=== PATIENT | female | born 1935 | race Hispanic/Latino ===

== ENCOUNTER 2020-10-09 09:33 | Inpatient (IN) | payer MEDICARE ==
[2020-10-09 11:58] LABS: Absolute Lymphocytes (CBC) 0.7 K/uL (0.7-4.9); Basophils % 0.3 % (0-1.3); Hematocrit 28.9 % (36.0-45.0); Lymphocytes % 12.5 % (15.3-44.8); MPV 8.1 fL (7.6-11.3); RBC Red Blood Cell Count 2.93 M/uL (3.86-4.86)
[2020-10-09 12:05] LABS: Protime INR 0.97
[2020-10-09 12:18] LABS: ALT/SGPT 106 U/L (12-78); AST/SGOT 68 U/L (15-37); Albumin 3.7 g/dL (3.4-5.0); Alkaline Phosphatase 128 U/L (45-117); BUN Blood Urea Nitrogen 86 mg/dL (7-18); Bicarbonate 27 mmol/L (21-32); Bilirubin Direct 0.2 mg/dL (0-0.2); Bilirubin Total 0.4 mg/dL (0.2-1.0); Glucose Level 297 mg/dL (74-106); NT PRO-BNP 2626 pg/mL (<450); Protein, Total 7.5 g/dL (6.4-8.2); Sodium Level 136 mmol/L (136-145); Troponin (Emerg Dept Use Only) < 0.02 ng/mL (0.0-0.045)
--- NOTE | 2020-10-09 12:27 | RAD REPORT ---
EXAM DESCRIPTION: Mag Single View10/09/2020 12:17 pm CLINICAL HISTORY: Chest pain COMPARISON: 2018 FINDINGS: Mild bilateral pulmonary opacities. The heart is mildly to moderately enlarged. Pacemaker leads are in place. IMPRESSION: These findings probably indicate mild CHF
--- NOTE | 2020-10-09 12:38 | RAD REPORT ---
EXAM DESCRIPTION: CT - Head Brain Wo Cont - 10/09/2020 12:31 pm CLINICAL HISTORY: Headache COMPARISON: None. TECHNIQUE: Computed axial tomography of the head was obtained. IV contrast was not requested. All CT scans are performed using dose optimization technique as appropriate and may include automated exposure control or mA/KV adjustment according to patient size. FINDINGS: An intracranial bleed is not seen . The ventricles are normal in caliber. 3.3 centimeter low-density area left cerebellum. 4.5 centimeter low-density area right occipital lobe . Additional smaller low-density areas right cerebrum. These have the appearance of old infarcts. Fluid within the sinuses/ mastoids is not seen. 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 No acute abnormality is displayed
--- NOTE | 2020-10-09 13:51 | ER ---
Nurse's Notes [facility] Name: Elizabeth Tabor Age: 85 yrs Sex: Female : 1935 Arrival Date: 10/09/2020 Time: 09:40 Bed 13 Private MD: Diagnosis: Anemia, unspecified;Heart failure;Weakness;Nausea and vomiting Presentation: 10/09 09:40 Chief complaint: EMS states: called out for N/V and dizziness that started today, em denies abd pain or fever. Coronavirus screen: Client denies travel out of the [place] in the last 14 days. Ebola Screen: Patient negative for fever greater than or equal to 101.5 degrees Fahrenheit, and additional compatible Ebola Virus Disease symptoms Patient denies exposure to infectious person. Patient denies travel to an Ebola-affected area in the 21 days before illness onset. No symptoms or risks identified at this time. Initial Sepsis Screen: Does the patient meet any 2 criteria? No. Patient's initial sepsis screen is negative. Does the patient have a suspected source of infection? No. Patient's initial sepsis screen is negative. Risk Assessment: Do you want to hurt yourself or someone else? Patient reports no desire to harm self or others. Onset of symptoms was October 09, 2020. 09:40 Method Of Arrival: EMS: [facility] em 09:40 Acuity: NICOLLE 3 em Historical: - Allergies: 09:53 Morphine; em 09:53 Xanax; em - Home Meds: 09:53 amiodarone 200 mg Oral tab 1 tab 2 times per day [Active]; clopidogrel 75 mg oral tab 1 em tab once daily [Active]; clonidine HCl 0.1 mg Oral tab 1 tab 2 times per day [Active]; furosemide 20 mg Oral tab 1 tab once daily [Active]; Klor-Con 10 10 mEq Oral TbER 1 tab once daily [Active]; risperidone 0.5 mg oral tab 1 tabs once daily [Active]; atorvastatin 40 mg oral tab 1 tab once daily [Active]; amlodipine 5 mg tab 1 tab once daily [Active]; losartan-hydrochlorothiazide 100-12.5 mg oral tab 1 tab once daily [Active]; docusate sodium 100 mg Oral cap 1 cap 2 times per day [Active]; 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 - Social history:: Smoking status: Patient denies any tobacco usage or history of. Screenin:40 Abuse screen: no apparent signs noted. Nutritional screening: No deficits noted. em Tuberculosis screening: No symptoms or risk factors identified. Fall Risk Fall in past 12 months (25 points). Ambulatory Aid- Crutches/Cane/Walker (15 pts). Gait- Impaired (20 pts.). Total Campa Fall Scale indicates High Risk Score (45 or more points). Side Rails Up X 2 Placed Close to Nursing Station Family Present and informed to notify staff if the need to leave the bedside. Assessment: 09:40 General: Appears in no apparent distress. comfortable, Behavior is calm, cooperative. em Pain: Complains of pain in abdomen. Neuro: Level of Consciousness is confused, Oriented to person, Reports dizziness. Cardiovascular: Capillary refill < 3 seconds Patient's skin is warm and dry. Respiratory: Airway is patent Respiratory effort is even, unlabored, Respiratory pattern is regular, symmetrical. GI: Parent/caregiver reports the patient having nausea, vomiting. Derm: Skin is intact. Musculoskeletal: Capillary refill < 3 seconds, Range of motion: intact in all extremities. 10:54 Reassessment: Dr. Ontiveros at bedside. em 11:58 Reassessment: Patient appears in no apparent distress at this time. Patient and/or em family updated on plan of care and expected duration. Pain level reassessed. Patient is alert, oriented x 3, equal unlabored respirations, skin warm/dry/pink. 12:30 Reassessment: Patient appears in no apparent distress at this time. Patient and/or em family updated on plan of care and expected duration. Pain level reassessed. Patient is alert, oriented x 3, equal unlabored respirations, skin warm/dry/pink. 13:50 Reassessment: daughter states pt needs to use the restroom, Dr. Ontiveros notified, pt em unable to use bed clark, Dr. Ontiveros notified, received VO for straight cath. 14:34 Reassessment: Dr. Ontiveros at bedside. em 14:51 Reassessment: Dr Campos at the bedside. sv 16:30 Reassessment: Patient appears in no apparent distress at this time. Patient and/or em family updated on plan of care and expected duration. Pain level reassessed. Patient is alert, oriented x 3, equal unlabored respirations, skin warm/dry/pink. 17:20 Reassessment: dinner tray given. em 18:35 Reassessment: Patient appears in no apparent distress at this time. Patient and/or em family updated on plan of care and expected duration. Pain level reassessed. Patient is alert, oriented x 3, equal unlabored respirations, skin warm/dry/pink. Vital Signs: 09:40 BP 177 / 51; Pulse 58; Resp 18; Temp 98.4(O); Pulse Ox 96% on R/A; em 11:30 BP 159 / 52; Pulse 60; Resp 18; Pulse Ox 94% on R/A; Pain 0/10; em 12:30 BP 157 / 53; Pulse 60; Resp 16; Pulse Ox 94% on R/A; em 13:30 BP 171 / 52; Pulse 61; Resp 15; Pulse Ox 94% on R/A; em 14:53 BP 175 / 54; Pulse 60; Resp 16; Pulse Ox 97% on R/A; em 15:45 BP 159 / 51; Pulse 59; Resp 18; Pulse Ox 95% on R/A; em 16:50 em 16:50 pt wanted BP cuff off em ED Course: 09:40 Patient arrived in ED. em 09:40 Gordy Landers, RN is Primary Nurse. em 09:40 Patient has correct armband on for positive identification. Bed in low position. Call em light in reach. Side rails up X2. Adult w/ patient. Pulse ox on. NIBP on. 09:41 Triage completed. em 09:52 Bogdan Ontiveros MD is Attending Physician. kdr 09:53 Arm band placed on. em 11:15 EKG done, by ED staff, reviewed by Bogdan Ontiveros MD. dh3 12:17 XRAY Chest (1 view) In Process Unspecified. EDMS 12:32 CT Head Brain wo Cont In Process Unspecified. EDMS 13:49 Glenn Naqvi MD is Hospitalizing Provider. kdr 14:38 Naeem Campos is Hospitalizing Provider. kdr 14:42 Straight cath inserted, using sterile technique, Specimen obtained. 15 FR Returned ae4 yellow, Slightly cloudy urine 1000mls output. Patient tolerated well. 16:28 COVID-19: for admission Sent. sv 17:35 CORONAVIRUS Sent. sv 18:34 No provider procedures requiring assistance completed. Patient admitted, IV remains in em place. Administered Medications: 15:27 Drug: Lasix 20 mg Route: IVP; Site: left antecubital; em 17:32 Follow up: Response: No adverse reaction em Outcome: 13:51 Decision to Hospitalize by Provider. kdr 18:34 Admitted to Med/surg accompanied by tech, family with patient, via stretcher, room 215, em with chart, Report called to CLAUDIA Fuller 18:34 Condition: stable 18:34 Instructed on the need for admit, Demonstrated understanding of instructions. 18:45 Patient left the ED. em Signatures: Dispatcher [employer] EDLaura Miller, RN RN Bogdan Ontiveros MD MD [facility] Gordy Landers RN RN Felicia Anderson [facility] Maciel Blas, RN RN ae4 Corrections: (The following items were deleted from the chart) 18:36 18:34 Admitted to Med/surg accompanied by tech, family with patient, via stretcher, em room 215, em
--- NOTE | 2020-10-09 13:51 | EDPHYS ---
Physician Documentation [facility] Name: Elizabeth Tabor Age: 85 yrs Sex: Female : 1935 Arrival Date: 10/09/2020 Time: 09:40 Bed 13 Private MD: ED Physician Bogdan Ontiveros HPI: 10/09 11:02 This 81 yrs old Female presents to ER via EMS with complaints of kdr Nausea/Vomiting, Dizziness. 11:02 The patient presents to the emergency department with nausea, that is mild, vomiting, kdr that is intermittent. Onset: The symptoms/episode began/occurred gradually, yesterday. Possible causes: unknown. The symptoms are aggravated by food , The symptoms are alleviated by nothing. Associated signs and symptoms: Pertinent positives: Dizziness. Severity of symptoms: At their worst the symptoms were moderate in the emergency department the symptoms are unchanged. The patient has not experienced similar symptoms in the past. The patient has not recently seen a physician. Historical: - Allergies: 09:53 Morphine; em 09:53 Xanax; em - Home Meds: 09:53 amiodarone 200 mg Oral tab 1 tab 2 times per day [Active]; clopidogrel 75 mg oral tab 1 em tab once daily [Active]; clonidine HCl 0.1 mg Oral tab 1 tab 2 times per day [Active]; furosemide 20 mg Oral tab 1 tab once daily [Active]; Klor-Con 10 10 mEq Oral TbER 1 tab once daily [Active]; risperidone 0.5 mg oral tab 1 tabs once daily [Active]; atorvastatin 40 mg oral tab 1 tab once daily [Active]; amlodipine 5 mg tab 1 tab once daily [Active]; losartan-hydrochlorothiazide 100-12.5 mg oral tab 1 tab once daily [Active]; docusate sodium 100 mg Oral cap 1 cap 2 times per day [Active]; 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 - Social history:: Smoking status: Patient denies any tobacco usage or history of. ROS: 11:02 Constitutional: Negative for fever, chills, and weight loss, Eyes: Negative for injury, kdr pain, redness, and discharge, ENT: Negative for injury, pain, and discharge, Neck: Negative for injury, pain, and swelling, Cardiovascular: Negative for chest pain, palpitations, and edema, Respiratory: Negative for shortness of breath, cough, wheezing, and pleuritic chest pain, Back: Negative for injury and pain, : Negative for injury, bleeding, discharge, and swelling, MS/Extremity: Negative for injury and deformity, Skin: Negative for injury, rash, and discoloration, Neuro: Negative for headache, weakness, numbness, tingling, and seizure activity. Psych: Negative for depression, anxiety, suicide ideation, homicidal ideation, and hallucinations, Allergy/Immunology: Negative for hives, rash, and allergies, Endocrine: Negative for neck swelling, polydipsia, polyuria, polyphagia, and marked weight changes, Hematologic/Lymphatic: Negative for swollen nodes, abnormal bleeding, and unusual bruising. 11:02 Abdomen/GI: Positive for nausea and vomiting, Negative for diarrhea, constipation, abdominal cramps, abdominal distension, anorexia, dysphagia, hematemesis, black/tarry stool, rectal pain, rectal bleeding. Exam: 11:02 Constitutional: This is a well developed, well nourished patient who is awake, alert, kdr and in no acute distress. Head/Face: Normocephalic, atraumatic. Eyes: Pupils equal round and reactive to light, extra-ocular motions intact. Lids and lashes normal. Conjunctiva and sclera are non-icteric and not injected. Cornea within normal limits. Periorbital areas with no swelling, redness, or edema. Neck: Trachea midline, no thyromegaly or masses palpated, and no cervical lymphadenopathy. Supple, full range of motion without nuchal rigidity, or vertebral point tenderness. No Meningismus. Chest/axilla: Normal chest wall appearance and motion. Nontender with no deformity. No lesions are appreciated. Cardiovascular: Regular rate and rhythm with a normal S1 and S2. No gallops, murmurs, or rubs. Normal PMI, no JVD. No pulse deficits. Respiratory: Lungs have equal breath sounds bilaterally, clear to auscultation and percussion. No rales, rhonchi or wheezes noted. No increased work of breathing, no retractions or nasal flaring. Back: No spinal tenderness. No costovertebral tenderness. Full range of motion. Skin: Warm, dry with normal turgor. Normal color with no rashes, no lesions, and no evidence of cellulitis. MS/ Extremity: Pulses equal, no cyanosis. Neurovascular intact. Full, normal range of motion. Neuro: Awake and alert, GCS 15, oriented to person, place, time, and situation. Cranial nerves II-XII grossly intact. Motor strength 5/5 in all extremities. Sensory grossly intact. Cerebellar exam normal. Normal gait. Psych: Awake, alert, with orientation to person, place and time. Behavior, mood, and affect are within normal limits. 11:02 Abdomen/GI: Inspection: abdomen appears normal, Bowel sounds: active, Palpation: 15:19 ECG was reviewed by the Attending Physician. kdr Vital Signs: 09:40 BP 177 / 51; Pulse 58; Resp 18; Temp 98.4(O); Pulse Ox 96% on R/A; em 11:30 BP 159 / 52; Pulse 60; Resp 18; Pulse Ox 94% on R/A; Pain 0/10; em 12:30 BP 157 / 53; Pulse 60; Resp 16; Pulse Ox 94% on R/A; em 13:30 BP 171 / 52; Pulse 61; Resp 15; Pulse Ox 94% on R/A; em 14:53 BP 175 / 54; Pulse 60; Resp 16; Pulse Ox 97% on R/A; em 15:45 BP 159 / 51; Pulse 59; Resp 18; Pulse Ox 95% on R/A; em 16:50 em 16:50 pt wanted BP cuff off em MDM: 13:51 Patient medically screened. kdr 13:51 Data reviewed: vital signs, nurses notes, lab test result(s), radiologic studies. kdr Counseling: I had a detailed discussion with the patient and/or guardian regarding: the historical points, exam findings, and any diagnostic results supporting the discharge/admit diagnosis, lab results, radiology results, the need for further work-up and treatment in the hospital. 10/09 11:01 Order name: Basic Metabolic Panel; Complete Time: 13:42 kdr 10/09 11: Order name: CBC with Diff; Complete Time: 13:42 kdr 10/09 11:01 Order name: LFT's; Complete Time: 13:42 kdr 10/09 11:01 Order name: Magnesium; Complete Time: 13:42 kdr 10/09 11:01 Order name: NT PRO-BNP; Complete Time: 13:42 kdr 10/09 11:01 Order name: PT-INR; Complete Time: 13:42 kdr 10/09 11:01 Order name: Troponin (emerg Dept Use Only); Complete Time: 13:42 kdr 10/09 11:01 Order name: XRAY Chest (1 view); Complete Time: 13:42 kdr 10/09 11:01 Order name: CT Head Brain wo Cont; Complete Time: 13:42 kdr 10/09 15:00 Order name: Urine Dipstick--Ancillary (enter results); Complete Time: 16:15 eb 10/09 15:55 Order name: COVID-19: for admission em 10/09 16:40 Order name: CORONAVIRUS [facility] 10/09 17:45 Order name: SARS-COV-2 RT PCR [facility] 10/09 11:01 Order name: EKG; Complete Time: 11:02 kdr 10/09 11:01 Order name: Cardiac monitoring; Complete Time: 14:15 kdr 10/09 11:01 Order name: EKG - Nurse/Tech; Complete Time: 11:21 kdr 10/09 11:01 Order name: IV Saline Lock; Complete Time: 11:58 kdr 10/09 11:01 Order name: Labs collected and sent; Complete Time: 11:58 [facility] 10/09 11:01 Order name: O2 Per Protocol; Complete Time: 11:26 [facility] 10/09 11:01 Order name: O2 Sat Monitoring; Complete Time: 11:26 [facility] 10/09 14:33 Order name: Urine Dipstick-Ancillary (obtain specimen); Complete Time: 14:33 em 10/09 14:33 Order name: Straight Cath - Urine; Complete Time: 14:33 em 10/09 14:54 Order name: Diet Renal; Complete Time: 14:55 em EC:19 Rate is 60 beats/min. Rhythm is regular, Paced with Left bundle branch block. Right kdr axis deviation noted. CT interval is normal. QRS interval is normal. Clinical impression: Paced . Administered Medications: 15:27 Drug: Lasix 20 mg Route: IVP; Site: left antecubital; em 17:32 Follow up: Response: No adverse reaction em Disposition: 10/09/20 13:51 Hospitalization ordered by Naeem Campos for Inpatient Admission. Preliminary diagnosis are Anemia, unspecified, Heart failure, Weakness, Nausea and vomiting. - Bed requested for Telemetry/MedSurg (Inpatient). - Status is Inpatient Admission. em - Condition is Fair. - Problem is new. - Symptoms have improved. Signatures: Dispatcher [employer] EDEneida Velazquez RN RN Bogdan Ontiveros MD MD [facility] Gordy Landers RN RN em Corrections: (The following items were deleted from the chart) 14:38 13:51 Hospitalization Ordered by Glenn Naqvi MD for Inpatient Admission. Preliminary [facility] diagnosis is Anemia, unspecified; Heart failure; Weakness; Nausea and vomiting. Bed requested for Telemetry/MedSurg (Inpatient). Status is Inpatient Admission. Condition is Fair. Problem is new. Symptoms have improved. kdr 17:59 14:38 10/09/2020 13:51 Hospitalization Ordered by Naeem Campos for Inpatient dw Admission. Preliminary diagnosis is Anemia, unspecified; Heart failure; Weakness; Nausea and vomiting. Bed requested for Telemetry/MedSurg (Inpatient). Status is Inpatient Admission. Condition is Fair. Problem is new. Symptoms have improved. kdr 18:45 17:59 10/09/2020 13:51 Hospitalization Ordered by Naeem Campos for Inpatient em Admission. Preliminary diagnosis is Anemia, unspecified; Heart failure; Weakness; Nausea and vomiting. Bed requested for Telemetry/MedSurg (Inpatient). Status is Inpatient Admission. Condition is Fair. Problem is new. Symptoms have improved. dw
[2020-10-09 15:12] LABS: Urine Blood NEGATIVE (NEG); Urine Glucose NEGATIVE (NEG); Urine Protein NEGATIVE (NEG); Urine Specific Gravity 1.015 (1.005-1.030)
[2020-10-09] MEDS ORDERED: FUROSEMIDE 20 MG/ 2ML VIAL ONE (15:32)
--- NOTE | 2020-10-09 15:32 | P.HP ---
Certification for Inpatient Patient admitted to: Inpatient With expected LOS: >2 Midnights Practitioner: I am a practitioner with admitting privileges, knowledge of patient current condition, hospital course, and medical plan of care. Services: Services provided to patient in accordance with Admission requirements found in Title 42 Section 412.3 of the Code of Federal Regulations Patient History Date of Service: 10/09/20 Reason for admission: Generalized weakness History of Present Illness: 85-year-old Latin speaking woman with a history of hypertension, diabetes mellitus, prior history of CVA, coronary artery disease, atrial fibrillation status post pacemaker was brought to the emergency department by her mother with concerns for generalize weakness, decreased functional capacity, nausea and vomits and increased tremors. Daughter also reports she has has been having poor sleep and has been agitated and hallucinating at night. Daughter reports patient has been eating well. She feels she has been experiencing fever. She was diagnosed with urinary tract infection about 2 weeks ago and was prescribed 2 weeks of antibiotics. Blood work in the ED suggest acute worsening of serum creatinine suggesting RADHA. UA does not suggest the presence of UTI. Chest x- ray demonstrated mild CHF. Patient is hospitalized for RADHA and further evaluation for the decreased functional status. - Past Medical/Surgical History -: Hypertension -: Coronary artery disease -: Atrial fibrillation -: History of CVA -: History of intracranial bleed -: Dementia with behavioral disturbance -: DM type 2 -: Hyperlipidemia -: Impaired vision -: CABG -: The intracranial bleed evacuation - Family History Father -: Diabetes (Diabetes run in the family.) - Social History Smoking Status: Never smoker Alcohol use: No CD- Drugs: No Place of Residence: Home Review of Systems Other: Daughter denies diarrhea or cough or chest pain. She has bowel movement every 2 days. Except as documented, all other systems reviewed and negative. Physical Examination - Physical Exam General: In no apparent distress, Other (Awake, frail appearing) HEENT: Mucous membr. moist/pink, Sclerae nonicteric Neck: Supple, JVD not distended Respiratory: Clear to auscultation bilaterally, Normal air movement Cardiovascular: No edema, Regular rate/rhythm, Normal S1 S2, Systolic murmur Capillary refill: <2 Seconds Gastrointestinal: Normal bowel sounds, Soft and benign, Non-distended, No tender ness Musculoskeletal: No swelling, No tenderness Integumentary: No rashes, No erythema Neurological: Other (Moves all extremities spontaneously) - Studies Laboratory Data (last 24 hrs) 10/09/20 11:50: PT 11.4, INR 0.97 10/09/20 11:50: WBC 5.9, Hgb 9.7 L, Hct 28.9 L, Plt Count 165 10/09/20 11:50: Sodium 136, Potassium 5.0, BUN 86 H, Creatinine 3.73 H, Glucose 297 H, Magnesium 3.0 H, Total Bilirubin 0.4, AST 68 H, ALT 106 H, Alkaline Phosphatase 128 H Assessment and Plan - Problems (Diagnosis) (1) Acute renal failure superimposed on stage 3 chronic kidney disease Current Visit: Yes Status: Acute (2) Chronic anemia Current Visit: Yes Status: Acute (3) Dementia with behavioral disturbance Current Visit: Yes Status: Acute (4) Parkinsonism Current Visit: Yes Status: Acute (5) DM type 2 (diabetes mellitus, type 2) Current Visit: Yes Status: Acute (6) Chronic diastolic heart failure Current Visit: Yes Status: Acute (7) Hypertension Current Visit: Yes Status: Acute - Plan Admit to the medical floor. Hydrate slowly with IV normal saline. Hold Lasix. Monitor renal function Continue Risperdal for agitation and hallucination. Will add Remeron to aid sleep at night and improve appetite. PT to eval. Screen for COVID 19. Monitor CBC to follow anemia. Transfuse p.r.n. for hemoglobin less than 8. Subcutaneous heparin for DVT prophylaxis. - Advance Directives Does patient have a Living Will: No Does patient have a Durable POA for Healthcare: No
[2020-10-09] MEDS ORDERED: NA CHLORIDE 0.9% 1,000 ML IV SCH (19:35)
[2020-10-09] MEDS: HEPARIN 5000 UNIT/ML 1 ML VIAL SQ SCH (20:11)
[2020-10-09] MEDS: INSULIN -REGULAR HUMAN 50 UNIT/0.5 ML ML SQ SCH ×2 (20:25→21:00)
[2020-10-09 21:01] VITALS: BMI 26.2
[2020-10-10] MEDS: HEPARIN 5000 UNIT/ML 1 ML VIAL SQ SCH ×3 (00:50→16:24)
[2020-10-10 05:45] LABS: Albumin 3.5 g/dL (3.4-5.0); Bilirubin Total 0.5 mg/dL (0.2-1.0); Magnesium 2.6 mg/dL (1.8-2.4); Phosphorus 3.8 mg/dL (2.5-4.9); Potassium 4.5 mmol/L (3.5-5.1); Protein, Total 7.2 g/dL (6.4-8.2)
[2020-10-10 05:47] LABS: Thyroid Stimulating Hormone 5.07 uIU/mL (0.360-3.740)
[2020-10-10 05:51] LABS: Absolute Lymphocytes (CBC) 1.4 K/uL (0.7-4.9); Basophils % 0.4 % (0-1.3); Hematocrit 28.9 % (36.0-45.0); Lymphocytes % 16.6 % (15.3-44.8); MPV 8.7 fL (7.6-11.3); RBC Red Blood Cell Count 2.95 M/uL (3.86-4.86)
[2020-10-10] MEDS ORDERED: DOCUSATE NA 100 MG CAP PO PRN (08:02)
[2020-10-10] MEDS: THYROID 30 MG TAB PO SCH (10:15)
[2020-10-10] MEDS: cloNIDine HCL 0.1 MG TAB PO SCH (10:15)
[2020-10-10] MEDS: ATORVASTATIN 40 MG TAB PO SCH (10:16)
[2020-10-10] MEDS: CLOPIDOGREL 75 MG TABLET PO SCH (10:16)
[2020-10-10] MEDS: AMIODARONE HCL 200 MG TAB PO SCH ×2 (10:16→21:09)
[2020-10-10] MEDS: POTASSIUM CL SA 10 MEQ TAB PO SCH (10:16)
[2020-10-10] MEDS: RISPERIDONE 1 MG TABLET PO SCH (10:16)
[2020-10-10] MEDS: INSULIN -REGULAR HUMAN 50 UNIT/0.5 ML ML SQ SCH ×4 (10:18→21:00)
--- NOTE | 2020-10-10 10:29 | P.PN ---
Subjective Date of Service: 10/10/20 Chief Complaint: Generalized weakness No issues overnight. Patient has been afebrile. Serum creatinine has trended down. No agitation overnight. She is awake and interactive this morning. Physical Examination - Vital Signs Temperature: 97.8 F Blood Pressure: 119/48 Pulse: 64 Respirations: 16 Pulse Ox (%): 92 - Physical Exam General: In no apparent distress, Other (Awake) HEENT: Mucous membr. moist/pink Neck: JVD not distended Respiratory: Clear to auscultation bilaterally, Normal air movement Cardiovascular: No edema, Regular rate/rhythm, Normal S1 S2 Gastrointestinal: Normal bowel sounds, Soft and benign, No tenderness Musculoskeletal: No swelling, No tenderness Integumentary: No rashes, No erythema Neurological: Normal speech, Other (Non-focal) - Studies Laboratory Data (last 24 hrs) 10/09/20 11:50: PT 11.4, INR 0.97 10/09/20 11:50: WBC 5.9, Hgb 9.7 L, Hct 28.9 L, Plt Count 165 10/09/20 11:50: Sodium 136, Potassium 5.0, BUN 86 H, Creatinine 3.73 H, Glucose 297 H, Magnesium 3.0 H, Total Bilirubin 0.4, AST 68 H, ALT 106 H, Alkaline Phosphatase 128 H Assessment And Plan - Current Problems (Diagnosis) (1) Acute renal failure superimposed on stage 3 chronic kidney disease Current Visit: Yes Status: Acute (2) Chronic anemia Current Visit: Yes Status: Acute (3) Dementia with behavioral disturbance Current Visit: Yes Status: Acute (4) Parkinsonism Current Visit: Yes Status: Acute (5) DM type 2 (diabetes mellitus, type 2) Current Visit: Yes Status: Acute (6) Chronic diastolic heart failure Current Visit: Yes Status: Acute (7) Hypertension Current Visit: Yes Status: Acute - Plan Serum creatinine is trending down. Continue IV normal saline Holding Lasix for 1 more day. Monitor renal function Continue Risperdal for agitation and hallucination. PT. Hemoglobin is stable. Family request bladder scan.
[2020-10-10] MEDS: NA CHLORIDE 0.9% 1,000 ML IV SCH (13:24)
--- NOTE | 2020-10-10 21:25 | RAD REPORT ---
EXAM DESCRIPTION: US - Urinary Bladder - 10/10/2020 9:16 pm CLINICAL HISTORY: retention, jaylon Pelvic pain COMPARISON: No comparisons TECHNIQUE: Real-time sonographic evaluation of the urinary bladder with pre and postvoid volume vlad urements was performed. FINDINGS: No urinary bladder mass or ureterocele seen. Prevoid bladder volume 320 mL. Postvoid bladd er volume 85 mL. IMPRESSION: Mild postvoid residual is noted.
[2020-10-11] MEDS: HEPARIN 5000 UNIT/ML 1 ML VIAL SQ SCH ×3 (00:39→16:11)
[2020-10-11 05:43] LABS: Absolute Lymphocytes (CBC) 1.3 K/uL (0.7-4.9); Basophils % 0.4 % (0-1.3); Hematocrit 26.4 % (36.0-45.0); Lymphocytes % 21.6 % (15.3-44.8); MPV 8.3 fL (7.6-11.3)
[2020-10-11 06:02] LABS: Potassium 4.5 mmol/L (3.5-5.1)
[2020-10-11] MEDS: NA CHLORIDE 0.9% 1,000 ML IV SCH ×3 (07:00→12:26)
[2020-10-11] MEDS: ACETAMINOPHEN 500 MG TAB PO PRN (08:42)
[2020-10-11] MEDS: INSULIN -REGULAR HUMAN 50 UNIT/0.5 ML ML SQ SCH ×4 (08:43→21:40)
[2020-10-11] MEDS: RISPERIDONE 1 MG TABLET PO SCH (08:44)
[2020-10-11] MEDS: THYROID 30 MG TAB PO SCH (08:44)
[2020-10-11] MEDS: CLOPIDOGREL 75 MG TABLET PO SCH (08:45)
[2020-10-11] MEDS: ATORVASTATIN 40 MG TAB PO SCH (08:45)
[2020-10-11] MEDS: cloNIDine HCL 0.1 MG TAB PO SCH (08:45)
[2020-10-11] MEDS: AMIODARONE HCL 200 MG TAB PO SCH ×2 (08:46→21:40)
[2020-10-11] MEDS: POTASSIUM CL SA 10 MEQ TAB PO SCH (08:46)
[2020-10-11 09:42] LABS: Urine Appearance CLOUDY; Urine Bilirubin NEGATIVE (NEG); Urine Blood NEGATIVE (NEG); Urine Color YELLOW; Urine Glucose NEGATIVE (NEG); Urine Protein NEGATIVE (NEG); Urine pH 6.5 (5.0-7.0)
[2020-10-11 09:58] LABS: Urine Bacteria >50 /HPF (<20); Urine RBC <5 /HPF (NONE SEEN)
--- NOTE | 2020-10-11 11:27 | P.PN ---
Subjective Date of Service: 10/11/20 Chief Complaint: Generalized weakness Patient developed low-grade fever today. Her oral intake is poor today and looks sicker than yesterday. Serum creatinine is trending down. No agitation. Repeat UA suggest UTI. Physical Examination - Vital Signs Temperature: 97.7 F Blood Pressure: 140/58 Pulse: 73 Respirations: 22 Pulse Ox (%): 92 - Physical Exam General: Other (Frail appearing) HEENT: Mucous membr. moist/pink, Sclerae nonicteric Neck: JVD not distended Respiratory: Clear to auscultation bilaterally, Normal air movement Cardiovascular: No edema, Regular rate/rhythm, Normal S1 S2 Gastrointestinal: Normal bowel sounds, Soft and benign, Non-distended, No tenderness Musculoskeletal: No swelling, No tenderness Integumentary: No rashes, No erythema Neurological: Other (Nonfocal) Assessment And Plan - Current Problems (Diagnosis) (1) Acute renal failure superimposed on stage 3 chronic kidney disease Current Visit: Yes Status: Acute (2) Chronic anemia Current Visit: Yes Status: Acute (3) Dementia with behavioral disturbance Current Visit: Yes Status: Acute (4) Parkinsonism Current Visit: Yes Status: Acute (5) DM type 2 (diabetes mellitus, type 2) Current Visit: Yes Status: Acute (6) Chronic diastolic heart failure Current Visit: Yes Status: Acute (7) Hypertension Current Visit: Yes Status: Acute (8) UTI (urinary tract infection) Current Visit: Yes Status: Acute - Plan Serum creatinine is trending down. Continue IV normal saline Holding Lasix Start IV Rocephin Follow urine culture Monitor renal function Continue Risperdal for agitation and hallucination. Continue PT. Hemoglobin is stable. Monitor CBC.
[2020-10-11] MEDS: CEFTRIAXONE/SWI 1gm 1 GM/10 ML SYR IVP SCH (15:21)
[2020-10-12] MEDS: HEPARIN 5000 UNIT/ML 1 ML VIAL SQ SCH ×3 (01:41→16:42)
[2020-10-12 04:15] LABS: Absolute Lymphocytes (CBC) 2.1 K/uL (0.7-4.9); Basophils % 0.4 % (0-1.3); Hematocrit 27.9 % (36.0-45.0); Lymphocytes % 38.6 % (15.3-44.8); MPV 8.3 fL (7.6-11.3); RBC Red Blood Cell Count 2.81 M/uL (3.86-4.86)
[2020-10-12 04:32] LABS: Potassium 4.3 mmol/L (3.5-5.1)
[2020-10-12] MEDS: ACETAMINOPHEN 500 MG TAB PO PRN ×2 (05:48→11:32)
[2020-10-12] MEDS: NA CHLORIDE 0.9% 1,000 ML IV SCH (05:49)
[2020-10-12] MEDS: CEFTRIAXONE/SWI 1gm 1 GM/10 ML SYR IVP SCH (08:23)
[2020-10-12] MEDS: THYROID 30 MG TAB PO SCH (08:23)
[2020-10-12] MEDS: cloNIDine HCL 0.1 MG TAB PO SCH (08:23)
[2020-10-12] MEDS: ATORVASTATIN 40 MG TAB PO SCH (08:24)
[2020-10-12] MEDS: AMIODARONE HCL 200 MG TAB PO SCH ×2 (08:24→20:40)
[2020-10-12] MEDS: RISPERIDONE 1 MG TABLET PO SCH (08:24)
[2020-10-12] MEDS: CLOPIDOGREL 75 MG TABLET PO SCH (08:24)
[2020-10-12] MEDS: POTASSIUM CL SA 10 MEQ TAB PO SCH (08:24)
[2020-10-12] MEDS: INSULIN -REGULAR HUMAN 50 UNIT/0.5 ML ML SQ SCH ×4 (08:24→20:40)
--- NOTE | 2020-10-12 17:07 | P.PN ---
Subjective Date of Service: 10/12/20 Chief Complaint: Generalized weakness Subjective: Improving (Patient reports feeling better this morning, denies any pain, does not recall reason for being admitted. No acute events overnight) Review of Systems 10-point ROS is otherwise unremarkable Physical Examination - Vital Signs Temperature: 97 F Blood Pressure: 139/60 Pulse: 50 Respirations: 16 Pulse Ox (%): 99 - Physical Exam General: In no apparent distress, Oriented x2 HEENT: Sclerae nonicteric Respiratory: Clear to auscultation bilaterally, Normal air movement Cardiovascular: No edema, Regular rate/rhythm Gastrointestinal: Soft and benign, No tenderness Musculoskeletal: No tenderness Neurological: Normal speech, Normal affect Assessment & Plan Physician Review Additional Text: RADHA on CKD 3 UTI Chronic anemia Dementia with behavioral disturbance Parkinsonism DM2 HTN Chronic diastolic heart failure Serum creatinine is trending down - was ~1.9 last month, 1.48 ~2 months ago Continue IV normal saline @50ml/hr; holding home lasix Continue IV Rocephin for UTI, awaiting final urine cultures Continue Risperdal for agitation and hallucination. Continue PT. Hemoglobin is stable. Comorbidities stable, continue home medications Dispo: Anticipate discharge home tomorrow pending final cultures and continued improvement of renal function Discussed with patient's daughter, feels patient is back to baseline mentally, no longer as confused Time Spent Managing Pts Care (In Minutes): 35
[2020-10-13] MEDS: HEPARIN 5000 UNIT/ML 1 ML VIAL SQ SCH ×2 (01:02→08:52)
[2020-10-13] MEDS: NA CHLORIDE 0.9% 1,000 ML IV SCH (04:00)
[2020-10-13 04:35] LABS: Magnesium 2.4 mg/dL (1.8-2.4); Potassium 4.4 mmol/L (3.5-5.1)
[2020-10-13] MEDS: cloNIDine HCL 0.1 MG TAB PO SCH (08:50)
[2020-10-13] MEDS: RISPERIDONE 1 MG TABLET PO SCH (08:51)
[2020-10-13] MEDS: CLOPIDOGREL 75 MG TABLET PO SCH (08:51)
[2020-10-13] MEDS: POTASSIUM CL SA 10 MEQ TAB PO SCH (08:51)
[2020-10-13] MEDS: AMIODARONE HCL 200 MG TAB PO SCH (08:51)
[2020-10-13] MEDS: THYROID 30 MG TAB PO SCH (08:52)
[2020-10-13] MEDS: ATORVASTATIN 40 MG TAB PO SCH (08:52)
[2020-10-13] MEDS: CEFTRIAXONE/SWI 1gm 1 GM/10 ML SYR IVP SCH (08:52)
[2020-10-13] MEDS: ACETAMINOPHEN 500 MG TAB PO PRN (08:53)
[2020-10-13] MEDS: INSULIN -REGULAR HUMAN 50 UNIT/0.5 ML ML SQ SCH (08:53)
[2020-10-13 08:55] VITALS: BP 180/90
[2020-10-13 09:10] VITALS: O2SAT 98
[2020-10-13 11:01] VITALS: TEMP 98.3
--- NOTE | 2020-10-13 20:08 | P.DS ---
Admission Date: 10/09/20 Discharge Date: 10/13/20 Disposition: ROUTINE DISCHARGE Discharge Condition: GOOD Reason for Admission: Generalized weakness, AMS, UTI Procedures: CXR (10/09): Mild bilateral pulmonary opacities. The heart is mildly to moderately enlarged. Pacemaker leads are in place. CT Head (10/09): Old cerebellar and cerebral infarcts. No acute abnormality is displayed Bladder U/S (10/10): No urinary bladder mass or ureterocele seen. Prevoid bladder volume 320 mL. Postvoid bladder volume 85 mL. Problem List RADHA on CKD 3 UTI Chronic anemia Dementia with behavioral disturbance Parkinsonism DM2 HTN Chronic diastolic heart failure Brief History of Present Illness: 85yo female, PMH: HTN, DM2, prior CVA, Afib s/p pacemaker who was brought to ED due to generalized weakness, decreased functional capacity, n/v, and hallucinations. Daughter reported a diagnosis of UTI ~2 weeks ago and was taking antibiotics. In the ED initial UA did not suggest UTI and labs revealed elevated creatinine of 3.73. Hospital Course: It was felt patient's RADHA was prerenal likely secondary to dehydration and improved with IVF hydration and holding home lasix for a few days. She was noted to have a Tmax of 100.3 on 10/11, repeat UA at this time was suggestive of UTI and cultures were obtained (grew klebsiella pneumoniae). Patient had resolution of her altered mental status and improvement in her functional capacity after receiving antibiotics. She was still fairly weak, however family felt comfortable assisting the patient at home. She is discharged home to continue Augmentin for an additional 7 days. She was advised to f/u with PCP within 1 week to follow renal function and to follow up with nephrology in the next month as well. Vital Signs/Physical Exam: Temp Pulse Resp BP Pulse Ox 98.3 F 76 18 180/90 H 98 10/13/20 08:00 10/13/20 08:50 10/13/20 08:00 10/13/20 08:50 10/13/20 08:00 General: In no apparent distress, Oriented x3 HEENT: Sclerae nonicteric Cardiovascular: No edema, Regular rate/rhythm Gastrointestinal: Soft and benign, Non-distended, No tenderness Musculoskeletal: No tenderness Integumentary: No rashes Neurological: Normal speech, Normal affect Laboratory Data at Discharge: WBC 5.5 K/uL (4.3-10.9) 10/12/20 03:43 Hgb 9.3 g/dL (12.0-15.0) L 10/12/20 03:43 Hct 27.9 % (36.0-45.0) L 10/12/20 03:43 Plt Count 151 K/uL (152-406) L 10/12/20 03:43 PT 11.4 SECONDS (9.5-12.5) 10/09/20 11:50 INR 0.97 10/09/20 11:50 Sodium 145 mmol/L (136-145) 10/13/20 03:45 Potassium 4.4 mmol/L (3.5-5.1) 10/13/20 03:45 BUN 47 mg/dL (7-18) H 10/13/20 03:45 Creatinine 2.07 mg/dL (0.55-1.3) H 10/13/20 03:45 Glucose 156 mg/dL (74-106) H 10/13/20 03:45 Phosphorus 3.8 mg/dL (2.5-4.9) 10/10/20 05:09 Magnesium 2.4 mg/dL (1.8-2.4) 10/13/20 03:45 Total Bilirubin 0.5 mg/dL (0.2-1.0) 10/10/20 05:09 AST 60 U/L (15-37) H 10/10/20 05:09 ALT 96 U/L (12-78) H 10/10/20 05:09 Alkaline Phosphatase 111 U/L (45-117) 10/10/20 05:09 Home Medications: Amiodarone HCl [Cordarone*] 1 tab PO BID 10/09/20 Amlodipine [Norvasc*] 1 tab PO DAILY 10/09/20 Atorvastatin Calcium [Lipitor] 1 tab PO DAILY 10/09/20 Clopidogrel Bisulfate [Plavix*] 1 tab PO DAILY 10/09/20 Docusate Sodium 1 tab PO BIDP PRN 10/09/20 Furosemide [Lasix*] 1 tab PO DAILY 10/09/20 Losartan/Hydrochlorothiazide [Losartan-Hctz 100-12.5 mg Tab] 1 tab PO DAILY 10/09/20 Potassium Oral Tab [Klor-Con 10 mEq Tab*] 1 tab PO DAILY 10/09/20 Risperidone [Risperdal] 1 tab PO DAILY 10/09/20 Thyroid,Pork [Senior Systems Developer Thyroid] 90 mg PO DAILY 10/09/20 cloNIDine HCL [Clonidine HCl] 1 tab PO DAILY 10/09/20 Insulin Glargine,Hum.rec.anlog [Lantus] 20 unit SQ DAILY 10/10/20 Amox/Clavulanate [Augmentin 500-125 mg Tab] 500 mg PO BID 7 Days #14 tab 10/13/20 New Medications: Amox/Clavulanate [Augmentin 500-125 mg Tab] 500 mg PO BID 7 Days #14 tab Patient Discharge Instructions: follow up with PCP within 1 week - to recheck kidney function. Diet: ADA Activity: Ad elodia Followup: Unknown,U [Primary Care Provider] - Time spent managing pt's care (in minutes): 35
== END 2020-10-13 09:37 | disposition home or self-care (01) | DRG 683 ==
LOC: ER 09:33 → EDBD 09:33 → ERHOLD 15:12 → 2ND 18:35
PROVIDERS: ADMIT Internal Medicine; ATTEND Hospitalist
DX: N17.9 Acute kidney failure, unspecified (principal); I13.0 Hypertensive heart and chronic kidney disease with heart failure and stage 1 through stage 4 chronic kidney disease, or unspecified chronic kidney disease; I50.32 Chronic diastolic (congestive) heart failure; F03.91 Unspecified dementia, unspecified severity, with behavioral disturbance; R44.3 Hallucinations, unspecified; N39.0 Urinary tract infection, site not specified; N18.30 Chronic kidney disease, stage 3 unspecified; E11.22 Type 2 diabetes mellitus with diabetic chronic kidney disease; I25.10 Atherosclerotic heart disease of native coronary artery without angina pectoris; G20 Parkinson's disease; E86.0 Dehydration; D64.9 Anemia, unspecified; E78.5 Hyperlipidemia, unspecified; B96.1 Klebsiella pneumoniae [K. pneumoniae] as the cause of diseases classified elsewhere; Z88.5 Allergy status to narcotic agent; Z88.8 Allergy status to other drugs, medicaments and biological substances; Z79.02 Long term (current) use of antithrombotics/antiplatelets; Z79.899 Other long term (current) drug therapy; Z95.1 Presence of aortocoronary bypass graft; Z79.4 Long term (current) use of insulin; Z86.73 Personal history of transient ischemic attack (TIA), and cerebral infarction without residual deficits; Z95.0 Presence of cardiac pacemaker; Z20.828 Contact with and (suspected) exposure to other viral communicable diseases
CPT/HCPCS: 36415; 51702; 70450; 71045; 76857; 80048; 80053; 80076; 81001; 81003; 82947; 83735; 83880; 84100; 84439; 84443; 84484; 85025; 85610; 87077; 87086; 87088; 87186; 93005; 96374; 97110; 97116; 97161; 97530; 99285; J0696; J1644; J1940; J7030; U0003

== ENCOUNTER 2020-11-22 12:18 | Inpatient (IN) | payer MEDICARE ==
[2020-11-22] MEDS ORDERED: ACETAMINOPHEN 500 MG TAB ONE (14:01)
[2020-11-22] MEDS ORDERED: NA CHLORIDE 0.9% 500 ML ONE (14:01)
[2020-11-22 14:11] LABS: Urine Blood 1+ (NEG); Urine Glucose NEGATIVE (NEG); Urine Protein 2+ (NEG); Urine pH 8.5 (5.0-7.0)
[2020-11-22 14:17] LABS: Albumin 3.1 g/dL (3.4-5.0); Bilirubin Direct 0.1 mg/dL (0-0.2); Bilirubin Total 0.4 mg/dL (0.2-1.0); C-Reactive Protein 67.9 mg/L (<3.00); Ferritin 264.4 ng/mL (8-388); Potassium 3.7 mmol/L (3.5-5.1); Protein, Total 7.2 g/dL (6.4-8.2); Troponin (Emerg Dept Use Only) 0.04 ng/mL (0.0-0.045)
[2020-11-22 14:27] LABS: Protime INR 1.02
[2020-11-22 14:29] LABS: Absolute Lymphocytes (CBC) 0.9 K/uL (0.7-4.9); Basophils % 0.4 % (0-1.3); Hematocrit 31.2 % (36.0-45.0); Lymphocytes % 11.5 % (15.3-44.8); MPV 8.6 fL (7.6-11.3); RBC Red Blood Cell Count 3.16 M/uL (3.86-4.86)
[2020-11-22 14:46] LABS: Urine Amorphous Sediment 1+ /HPF (NONE SEEN); Urine Bacteria >50 /HPF (<20)
--- NOTE | 2020-11-22 14:56 | RAD REPORT ---
EXAM DESCRIPTION: CT - Abdomen Pelvis Wo Contrast - 11/22/2020 2:42 pm CLINICAL HISTORY: Abdominal pain COMPARISON: None TECHNIQUE: Computed axial tomography of the abdomen and pelvis was obtained. IV and oral contrast we re not requested. All CT scans are performed using dose optimization technique as appropriate and may include automated exposure control or mA/KV adjustment according to patient size. FINDINGS: The evaluation of solid organs, vessels and bowel is limited secondary to the lack of con trast administration. The liver, spleen, pancreas, adrenals and kidneys appear grossly normal. Cholecystectomy. Marked dilatation of the common bile duct. Cardiomegaly Vascular calcifications No evidence of diverticulitis. Marked amount stool within the transverse and right colon IMPRESSION: Marked amount stool within the transverse and right colon Marked dilatation of the common bile duct. This can be a normal finding in this elderly patient statu s post cholecystectomy. Pathology such as stricture can also result in this appearance. This should b e correlated clinically and with appropriate lab values
--- NOTE | 2020-11-22 15:00 | RAD REPORT ---
EXAM DESCRIPTION: Mag Single View11/22/2020 2:23 pm CLINICAL HISTORY: Cough COMPARISON: September 20 1030 FINDINGS: Left upper lobe consolidation Heart is moderately enlarged. Postsurgical changes involve the chest. Pacemaker lead in place IMPRESSION: Left upper lobe consolidation probably pneumonia.
[2020-11-22 16:41] LABS: SARS-COV-2 RT PCR POSITIVE (NEGATIVE)
[2020-11-22] MEDS ORDERED: CEFTRIAXONE/SWI 1gm 1 GM/10 ML SYR ONE ×2 (17:06→20:48)
--- NOTE | 2020-11-22 17:11 | ER ---
Nurse's Notes [facility] Name: Elizabeth Tabor Age: 85 yrs Sex: Female : 1935 Arrival Date: 11/22/2020 Time: 12:32 Bed 25 Private MD: Diagnosis: Urinary tract infection, site not specified-failed outpatient therapy;Pneumonia, unspecified organism;Streptococcal pharyngitis;Coronavirus infection, unspecified Presentation: 11/22 12:32 Chief complaint: EMS states: GENERAL WEAKNESS AND FEVER. Coronavirus screen: bp congestion, cough unrelated to allergies, Client presents with at least one sign or symptom that may indicate coronavirus-19. Standard/surgical mask placed on the client. Provider contacted for isolation considerations. Ebola Screen: No symptoms or risks identified at this time. Initial Sepsis Screen: Does the patient meet any 2 criteria? RR > 20 per min. No. Patient's initial sepsis screen is negative. Does the patient have a suspected source of infection? Yes: Productive cough/pneumonia. Risk Assessment: Do you want to hurt yourself or someone else? Patient reports no desire to harm self or others. Onset of symptoms is unknown. Care prior to arrival: IV initiated. 22 GA, in the left hand, Glucose check: 258. 12:32 Method Of Arrival: EMS: [facility] bp 12:32 Acuity: NICOLLE 3 bp Triage Assessment: 12:35 General: Appears distressed, uncomfortable, ill, Behavior is cooperative, appropriate bp for age, anxious. Pain: Denies pain. EENT: No deficits noted. Neuro: No deficits noted. Cardiovascular: No deficits noted. Respiratory: Reports cough that is. GI: No signs and/or symptoms were reported involving the gastrointestinal system. : No signs and/or symptoms were reported regarding the genitourinary system. Derm: No deficits noted. Musculoskeletal: No deficits noted. Historical: - Allergies: 12:35 Morphine; bp 12:35 Xanax; bp - Home Meds: 12:35 amiodarone 200 mg Oral tab 1 tab 2 times per day [Active]; amlodipine 5 mg tab 1 tab bp once daily [Active]; atorvastatin 40 mg Oral tab 1 tab once daily [Active]; clonidine HCl 0.1 mg Oral tab 1 tab 2 times per day [Active]; clopidogrel 75 mg Oral tab 1 tab once daily [Active]; risperidone 0.5 mg Oral tab 1 tabs once daily [Active]; ADMISSIONS CONSULTANT Thyroid 90 mg Oral tab [Active]; losartan-hydrochlorothiazide 100-12.5 mg Oral tab 1 tab once daily [Active]; Lantus 100 unit/mL Sub-Q soln [Active]; Klor-Con 10 10 mEq Oral TbER 1 tab once daily [Active]; furosemide 20 mg Oral tab 1 tab once daily [Active]; Humalog Pen Sub-Q [Active]; docusate sodium 100 mg Oral cap 1 cap 2 times per day [Active]; - PMHx: 12:35 CVA; Diabetes - IDDM; Hyperlipidemia; Hypertension; Pacemaker; bp - Immunization history:: Adult Immunizations up to date. - Social history:: Smoking status: unknown. Screenin:33 Abuse screen: Denies threats or abuse. Denies injuries from another. Nutritional bp screening: No deficits noted. Tuberculosis screening: No symptoms or risk factors identified. Fall Risk None identified. Assessment: 12:35 General: SEE TRIAGE NOTE. bp 13:30 Reassessment: No changes from previously documented assessment. Patient and/or family bp updated on plan of care and expected duration. Pain level reassessed. Patient is alert, oriented x 3, equal unlabored respirations, skin warm/dry/pink. 14:30 Reassessment: No changes from previously documented assessment. Patient and/or family bp updated on plan of care and expected duration. Pain level reassessed. Patient is alert, oriented x 3, equal unlabored respirations, skin warm/dry/pink. PT TO CT. 16:34 Reassessment: O2 88% on RA, pt placed on 2 lpm via NC, O2 up to 94%, ERP made aware. jl7 Vital Signs: 12:32 BP 140 / 60; Pulse 85; Resp 24; Temp 100.8; Pulse Ox 94% on R/A; bp 13:30 BP 169 / 62; Pulse 73; Resp 17; Pulse Ox 95% ; bp 14:30 BP 142 / 67; Pulse 74; Resp 16; Pulse Ox 95% ; bp 16:25 BP 148 / 54; Pulse 76; Resp 14; Pulse Ox 88% ; jl7 16:30 Temp 99.9; jl7 16:34 Pulse Ox 94% on 2 lpm NC; jl7 ED Course: 12:32 Patient arrived in ED. bp 12:37 Triage completed. bp 12:37 Arm band placed on. bp 12:38 Jake Patiño RN is Primary Nurse. bp 13:07 Robert Muro NP is PHCP. pm1 13:07 Corey Kurtz MD is Attending Physician. pm1 13:33 Patient has correct armband on for positive identification. Bed in low position. Call bp light in reach. Side rails up X2. Adult w/ patient. 13:42 Initial lab(s) drawn, by me, sent to lab. Inserted saline lock: 20 gauge in right hand, dh3 using aseptic technique. Blood collected. 14:00 Straight cath inserted, using sterile technique, 15G Returned cloudy urine. Patient dh3 tolerated well. 14:23 CXR XRAY In Process Unspecified. EDMS 14:42 Abdomen In Process Unspecified. EDMS 17:10 Darnell Barajas DO is Hospitalizing Provider. pm1 19:00 Report given to CLAUDIA Green. jl7 19:00 No provider procedures requiring assistance completed. Patient admitted, IV remains in jl7 place. intact, No redness/swelling at site. Administered Medications: 13:30 Drug: NS 0.9% 500 ml Route: IV; Rate: bolus; Site: right antecubital; bp 14:15 Follow up: Response: No adverse reaction; IV Status: Completed infusion; IV Intake: jl7 500ml 13:45 Drug: Tylenol 1000 mg Route: PO; bp 16:30 Follow up: Temp 99.9; Response: No adverse reaction; Pain is decreased jl7 16:39 Drug: NS 0.9% 500 ml Route: IV; Rate: bolus; Site: right wrist; jl7 17:15 Follow up: Response: No adverse reaction; IV Status: Completed infusion; IV Intake: jl7 500ml 16:45 Drug: Rocephin 1 grams Route: IV; Rate: calculated rate; Site: right antecubital; bp 16:48 Follow up: Response: No adverse reaction; IV Status: Completed infusion jl7 Intake: 14:15 IV: 500ml; Total: 500ml. jl7 17:15 IV: 500ml; Total: 1000ml. jl7 Outcome: 17:10 Decision to Hospitalize by Provider. pm1 19:00 Admitted to ER Hold. Please see [employer] for further documentation. jl7 19:00 Condition: stable 19:00 Discharge instructions given to patient, family, Instructed on the need for admit, Demonstrated understanding of instructions. 22:26 Patient left the ED. ea Signatures: Dispatcher [employer] EDMS Robert Muro NP ADMISSIONS CONSULTANT pm1 Lilia Garay, RN RN jl7 Felicia Anderson 3 Jazmine Alejandro RN RN Jake Woodruff RN RN bp Corrections: (The following items were deleted from the chart) 14:30 13:30 Reassessment: No changes from previously documented assessment. Patient and/or bp family updated on plan of care and expected duration. Pain level reassessed. Patient is alert/active/playful, equal unlabored respirations, skin warm/dry/pink. bp
--- NOTE | 2020-11-22 17:12 | EDPHYS ---
Physician Documentation [facility] Name: Elizabeth Tabor Age: 85 yrs Sex: Female : 1935 Arrival Date: 11/22/2020 Time: 12:32 Bed 25 Private MD: ED Physician oCrey Kurtz HPI: 11/22 13:07 This 85 yrs old Female presents to ER via EMS with complaints of Fever, pm1 General Weakness. 13:07 The patient presents to the emergency department with weakness of the entire body, pm1 generalized weakness. Onset: The symptoms/episode began/occurred last night. Context: occurred at home, with cough and congestion starting last night. Has a urinary tract infection treated with 7 days of Macrobid by PCP. Her last dosage is tomorrow. Patient with complaints of suprapubic pain starting last night also. Associated signs and symptoms: Pertinent positives: fever, tmax 100.8 last night, Pertinent negatives: dizziness, headache, focal weakness, nausea, vomiting, diarrhea. Severity of symptoms: in the emergency department the symptoms are unchanged. Patient's baseline: Neuro: alert and fully oriented, Motor: no deficits, deficit from CVA is upper extremity tremors, Ambulation: walks with assist only, uses walker, The patient has a previous history of CVA. Current symptoms: abdominal pain, low back pain, cough, generalized weakness. The patient has been recently seen by a physician: the patient's primary care provider, treated for UTI last week. 14:16 Patient's tested positive for covid 2-3 weeks ago. pm1 Historical: - Allergies: 12:35 Morphine; bp 12:35 Xanax; bp - Home Meds: 12:35 amiodarone 200 mg Oral tab 1 tab 2 times per day [Active]; amlodipine 5 mg tab 1 tab bp once daily [Active]; atorvastatin 40 mg Oral tab 1 tab once daily [Active]; clonidine HCl 0.1 mg Oral tab 1 tab 2 times per day [Active]; clopidogrel 75 mg Oral tab 1 tab once daily [Active]; risperidone 0.5 mg Oral tab 1 tabs once daily [Active]; TRAINING PERSONNEL SUPERVISOR Thyroid 90 mg Oral tab [Active]; losartan-hydrochlorothiazide 100-12.5 mg Oral tab 1 tab once daily [Active]; Lantus 100 unit/mL Sub-Q soln [Active]; Klor-Con 10 10 mEq Oral TbER 1 tab once daily [Active]; furosemide 20 mg Oral tab 1 tab once daily [Active]; Humalog Pen Sub-Q [Active]; docusate sodium 100 mg Oral cap 1 cap 2 times per day [Active]; - PMHx: 12:35 CVA; Diabetes - IDDM; Hyperlipidemia; Hypertension; Pacemaker; bp - Immunization history:: Adult Immunizations up to date. - Social history:: Smoking status: unknown. ROS: 13:29 Eyes: Negative for injury, pain, redness, and discharge, ENT: Negative for injury, pm1 pain, and discharge, Neck: Negative for injury, pain, and swelling, Cardiovascular: Negative for chest pain, palpitations, and edema. 13:29 MS/Extremity: Negative for injury and deformity, Skin: Negative for injury, rash, and discoloration. 13:29 Constitutional: Positive for fever, Negative for poor PO intake. 13:29 Respiratory: Positive for cough, "sounds productive", Negative for wheezing. 13:29 Abdomen/GI: Positive for abdominal pain, of the suprapubic area, Negative for nausea, vomiting, and diarrhea. 13:29 Back: Positive for flank pain, bilaterally. 13:29 : Positive for burning with urination. 13:29 Neuro: Positive for generalized weakness, Negative for headache, numbness. Exam: 13:29 Constitutional: This is a well developed, well nourished patient who is awake, alert, pm1 and in no acute distress. Head/Face: Normocephalic, atraumatic. Neck: Trachea midline, no thyromegaly or masses palpated, and no cervical lymphadenopathy. Supple, full range of motion without nuchal rigidity, or vertebral point tenderness. No Meningismus. Chest/axilla: Normal chest wall appearance and motion. Nontender with no deformity. No lesions are appreciated. 13:29 Back: No spinal tenderness. No costovertebral tenderness. Full range of motion. Skin: Warm, dry with normal turgor. Normal color with no rashes, no lesions, and no evidence of cellulitis. MS/ Extremity: Pulses equal, no cyanosis. Neurovascular intact. Full, normal range of motion. 13:29 Cardiovascular: Exam negative for acute changes, Rate: normal, Rhythm: regular, Pulses: no pulse deficits are appreciated, Edema: is not appreciated. 13:29 Respiratory: Exam negative for acute changes, the patient does not display signs of respiratory distress, Breath sounds: are clear throughout. 13:29 Abdomen/GI: Inspection: abdomen appears normal, Palpation: abdomen is soft and non-tender, in all quadrants, moderate abdominal tenderness, in the suprapubic area. 13:29 Neuro: Orientation: is normal, Mentation: is normal, Motor: is normal, moves all fours. Vital Signs: 12:32 BP 140 / 60; Pulse 85; Resp 24; Temp 100.8; Pulse Ox 94% on R/A; bp 13:30 BP 169 / 62; Pulse 73; Resp 17; Pulse Ox 95% ; bp 14:30 BP 142 / 67; Pulse 74; Resp 16; Pulse Ox 95% ; bp 16:25 BP 148 / 54; Pulse 76; Resp 14; Pulse Ox 88% ; jl7 16:30 Temp 99.9; jl7 16:34 Pulse Ox 94% on 2 lpm NC; jl7 MDM: 13:07 Patient medically screened. pm1 16:44 Data reviewed: vital signs. pm1 17:09 Physician consultation: Darnell Chachobianka KING was contacted at 17:09, regarding admission, pm1 in the emergency department to see patient at 17:09. 11/22 13:17 Order name: Urine Microscopic Only; Complete Time: 15:01 pm11/22 13:17 Order name: Blood Culture Adult (2) pm1 11/22 13:17 Order name: BMP; Complete Time: 14:21 pm11/22 13:17 Order name: C-Reactive Protein; Complete Time: 14:21 pm11/22 13:17 Order name: CBC with Diff; Complete Time: 15:01 pm11/22 13:17 Order name: Ferritin; Complete Time: 14:21 pm11/22 13:17 Order name: Lactate; Complete Time: 14:16 pm11/22 13:17 Order name: LFT's; Complete Time: 14:21 pm11/22 13:17 Order name: Lipase; Complete Time: 14:21 pm11/22 13:17 Order name: Procalcitonin; Complete Time: 15:01 pm11/22 13:17 Order name: PT-INR; Complete Time: 15:01 pm11/22 13:17 Order name: Ptt, Activated; Complete Time: 15:01 pm1 11/22 13:17 Order name: Urine Dipstick-Ancillary (obtain specimen); Complete Time: 14:29 pm1 11/22 13:17 Order name: Strep; Complete Time: 15:01 pm1 11/22 13:17 Order name: Troponin (emerg Dept Use Only); Complete Time: 14:21 pm1 11/22 13:17 Order name: CXR XRAY; Complete Time: 15:01 pm1 11/22 13:17 Order name: EKG; Complete Time: 13:18 pm1 11/22 14:04 Order name: Urine Dipstick--Ancillary (enter results); Complete Time: 14:16 bd 11/22 14:38 Order name: Abdomen ; Complete Time: 15:01 EDMS 11/22 14:47 Order name: Urine Culture EDMS 11/22 14:54 Order name: CREATININE WHOLE BLOOD; Complete Time: 15:01 EDMS 11/22 16:42 Order name: COVID-19/FLU A+B; Complete Time: 17:03 EDMS 11/22 21:15 Order name: Glucose, Ancillary Testing; Complete Time: 21:16 EDMS 11/22 13:17 Order name: Cardiac monitoring; Complete Time: 13:27 pm1 11/22 13:17 Order name: Droplet/Contact Precautions; Complete Time: 13:27 pm11/22 13:17 Order name: EKG - Nurse/Tech; Complete Time: 14:29 pm11/22 13:17 Order name: IV Start; Complete Time: 14:04 pm11/22 13:17 Order name: Labs collected and sent; Complete Time: 14:05 pm11/22 13:17 Order name: O2 Per Protocol; Complete Time: 13:27 pm11/22 13:17 Order name: O2 Sat Monitoring; Complete Time: 13:27 pm11/22 13:22 Order name: Straight Cath - Urine; Complete Time: 14:04 pm1 Administered Medications: 13:30 Drug: NS 0.9% 500 ml Route: IV; Rate: bolus; Site: right antecubital; bp 14:15 Follow up: Response: No adverse reaction; IV Status: Completed infusion; IV Intake: jl7 500ml 13:45 Drug: Tylenol 1000 mg Route: PO; bp 16:30 Follow up: Temp 99.9; Response: No adverse reaction; Pain is decreased jl7 16:39 Drug: NS 0.9% 500 ml Route: IV; Rate: bolus; Site: right wrist; jl7 17:15 Follow up: Response: No adverse reaction; IV Status: Completed infusion; IV Intake: jl7 500ml 16:45 Drug: Rocephin 1 grams Route: IV; Rate: calculated rate; Site: right antecubital; bp 16:48 Follow up: Response: No adverse reaction; IV Status: Completed infusion jl7 Disposition: 11/22/20 17:10 Hospitalization ordered by Darnell Barajas for Inpatient Admission. Preliminary diagnosis are Pneumonia, unspecified organism, Urinary tract infection, site not specified - failed outpatient therapy, Streptococcal pharyngitis, Coronavirus infection, unspecified. - Bed requested for Telemetry/MedSurg (Inpatient). - Status is Inpatient Admission. ea - Condition is Stable. - Problem is new. - Symptoms have improved. Addendum: 11/24/2020 06:51 Co-signature as Attending Physician, Corey Kurtz MD I agree with the assessment and c thompson plan of care. Signatures: Dispatcher [employer] EDMS Rosalee Nagy RN RN mw Anderson, Corey, MD MD cha Marinas, Patrick, HOLDEN TRAINING PERSONNEL SUPERVISOR pm1 Lilia Garay RN RN jl7 Jazmine Alejandro RN RN ea Peltier, Brian, RN RN bp Corrections: (The following items were deleted from the chart) 11/22 14:38 13:18 Abdomen Pelvis W Con+CT.RAD.BRZ ordered. EDMS EDMS 15:33 13:18 CORONAVIRUS+MR.LAB.BRZ ordered. EDMS EDMS 15:34 13:18 Influenza Screen (A \\T\\ B)+BA.LAB.BRZ ordered. EDMS EDMS 19:27 17:10 Hospitalization Ordered by Darnell Barajas DO for Inpatient Admission. Preliminary diagnosis is Pneumonia, unspecified organismUrinary tract infection, site not specified - failed outpatient therapy; Streptococcal pharyngitis; Coronavirus infection, unspecified. Bed requested for Telemetry/MedSurg (Inpatient). Status is Inpatient Admission. Condition is Stable. Problem is new. Symptoms have improved. pm1 21:41 19:27 11/22/2020 17:10 Hospitalization Ordered by Darnell Barajas DO for Inpatient mw Admission. Preliminary diagnosis is Pneumonia, unspecified organismUrinary tract infection, site not specified - failed outpatient therapy; Streptococcal pharyngitis; Coronavirus infection, unspecified. Bed requested for [facility] ER HOLD. Status is Inpatient Admission. Condition is Stable. Problem is new. Symptoms have improved. mw 22:26 21:41 11/22/2020 17:10 Hospitalization Ordered by Darnell Barajas DO for Inpatient ea Admission. Preliminary diagnosis is Pneumonia, unspecified organismUrinary tract infection, site not specified - failed outpatient therapy; Streptococcal pharyngitis; Coronavirus infection, unspecified. Bed requested for Telemetry/MedSurg (Inpatient). Status is Inpatient Admission. Condition is Stable. Problem is new. Symptoms have improved. mw
--- NOTE | 2020-11-22 17:31 | P.HP ---
Certification for Inpatient Patient admitted to: Inpatient With expected LOS: >2 Midnights Patient will require the following post-hospital care: Home Health Services Practitioner: I am a practitioner with admitting privileges, knowledge of patient current condition, hospital course, and medical plan of care. Services: Services provided to patient in accordance with Admission requirements found in Title 42 Section 412.3 of the Code of Federal Regulations Patient History Date of Service: 11/22/20 Primary Care Provider: Dr. Anderson Reason for admission: Fever, cough History of Present Illness: 85-year-old female with history of hypertension, diabetes, CAD with prior pacemaker, history of CVA, chronic renal disease stage III and hyperlipidemia. Patient presented with fever, cough and urinary pain. Patient was given Macrobid recently for UTI. Patient with history of recurrent UTI. Patient also reported cough. She was recently tested negative for COVID. Increased fatigue noted. Poor oral intake. Patient came to the ER for further evaluation. In the ER patient evaluated. Vital signs stable but room air saturations around 80%. White count 7.7, hemoglobin 10.5. Platelet count 155. BUN 40, creatinine 1.5 with a GFR 28. Glucose 180. Pro calcitonin 0.08. Lactic acid normal. Patient was positive for streptococcus. Patient also positive for UTI and COVID. Chest x-ray shows left lower lobe pneumonia. CRP 67. Ferritin 264. Patient admitted for further evaluation and treatment. Patient was given IV Rocephin and oxygen in the emergency room. Cultures obtained. Allergies alprazolam [From Xanax] Adverse Reaction (Verified 10/09/20 19:50) agitations/hallucinations morphine Adverse Reaction (Verified 10/09/20 19:48) hallucinations/agitations Home medications list reviewed: Yes Home Medications: Amiodarone HCl [Cordarone*] 1 tab PO BID 10/09/20 Amlodipine [Norvasc*] 1 tab PO DAILY 10/09/20 Atorvastatin Calcium [Lipitor] 1 tab PO DAILY 10/09/20 Clopidogrel Bisulfate [Plavix*] 1 tab PO DAILY 10/09/20 Docusate Sodium 1 tab PO BIDP PRN 10/09/20 Furosemide [Lasix*] 1 tab PO DAILY 10/09/20 Losartan/Hydrochlorothiazide [Losartan-Hctz 100-12.5 mg Tab] 1 tab PO DAILY 10/09/20 Potassium Oral Tab [Klor-Con 10 mEq Tab*] 1 tab PO DAILY 10/09/20 Risperidone [Risperdal] 1 tab PO DAILY 10/09/20 Thyroid,Pork [Surveillance Agent Thyroid] 90 mg PO DAILY 10/09/20 cloNIDine HCL [Clonidine HCl] 1 tab PO DAILY 10/09/20 Insulin Glargine,Hum.rec.anlog [Lantus] 20 unit SQ DAILY 10/10/20 Amox/Clavulanate [Augmentin 500-125 mg Tab] 500 mg PO BID 7 Days #14 tab 10/13/20 - Past Medical/Surgical History Diabetic: Yes -: Hypertension -: Coronary artery disease -: Atrial fibrillation -: History of CVA -: History of intracranial bleed -: Dementia with behavioral disturbance -: DM type 2 -: Hyperlipidemia -: Impaired vision -: Chronic renal disease stage III -: Recurrent UTI -: CABG -: Intracranial bleed evacuation Psychosocial/ Personal History: Patient lives at home with daughter. Patient has home health - Family History Father -: Diabetes - Social History Smoking Status: Never smoker Alcohol use: No CD- Drugs: No Caffeine use: No Place of Residence: Home Review of Systems General: Fever, Weakness, Malaise, As per HPI Eyes: Unremarkable Respiratory: Cough, As per HPI Cardiovascular: Unremarkable Gastrointestinal: As per HPI Genitourinary: Dysuria, Urgency, As per HPI Musculoskeletal: Unremarkable Integumentary: Unremarkable Neurological: Unremarkable Lymphatics: Unremarkable Physical Examination - Physical Exam General: Alert, In no apparent distress, Cooperative, Demented (Mild) HEENT: Atraumatic, PERRLA, Other (Dry mucous membranes) Neck: Supple Respiratory: Other (Patient on 2 L per nasal cannula) Cardiovascular: Normal pulses, Regular rate/rhythm Gastrointestinal: Normal bowel sounds, Soft and benign, Non-distended, No tenderness, No masses, No rebound, No guarding Musculoskeletal: No erythema, No tenderness, No warmth Integumentary: No tenderness/swelling, No erythema, No warmth, No cyanosis Neurological: Normal speech, Normal strength at 5/5 x4 extr, Normal tone, Dementia - Studies Laboratory Data (last 24 hrs) 11/22/20 13:42: PT 12.0, INR 1.02, APTT 30.2 11/22/20 13:42: WBC 7.7, Hgb 10.5 L, Hct 31.2 L, Plt Count 185 11/22/20 13:42: Sodium 137, Potassium 3.7, BUN 48 H, Creatinine 1.72 H, Glucose 180 H, Total Bilirubin 0.4, AST 98 H, ALT 102 H, Alkaline Phosphatase 124 H, Lipase 109 Microbiology Data (last 24 hrs): 11/22/20 14:15 Throat Group A Streptococcus Rapid Screen - Final Assessment and Plan - Plan Impression: Cough, fever secondary to recurrent UTI complicated with left lower lobe streptococcal pneumonia and COVID 19 Acute and chronic renal disease stage 4 Diabetes mellitus type 2 insulin dependent Hypertension History of intracranial bleed-CVA Pacemaker with history of atrial fibrillation Hyperlipidemia Dementia Plan: Patient be made for further evaluation and treatment. Will start with IV Rocephin. Blood, urine cultures obtained. Will also provide IV Solu-Medrol for COVID 19 infection. Maintain sats above 93%. Will provide IV fluids up to 1 L. Hold diuretic therapy. Will provide medication for diabetes. Electrolyte protocol in place. Sliding scale also known placement. Will restart home medications for hypertension. Restart Plavix. Patient overall stable. quality assurance monitor final closely. Advance care directives addressed in detail. Patient is do not resuscitate. Patient will require home health at discharge as she currently uses at this time. We need to rule out for bacteremia. Need to rule out for resistant UTI. Will continue monitor closely. Reassess tomorrow. Events complaining-30 min. Discharge Plan: Home Plan to discharge in: Greater than 2 days - Advance Directives Does patient have a Living Will: Yes Does patient have a Durable POA for Healthcare: Yes - Code Status/Comfort Care Code Status Assessed: Yes (Patient is DNR) Time Spent Managing Pts Care (In Minutes): 55
[2020-11-22] MEDS ORDERED: ONDANSETRON 4 MG/2 ML VIAL IV PRN (20:03)
[2020-11-22] MEDS ORDERED: D50W 25 GM/50 ML SYRINGE IV PRN (20:03)
[2020-11-22] MEDS: NA CHLORIDE 0.9% 1,000 ML IV SCH (20:03)
[2020-11-22] MEDS ORDERED: GLUCAGON 1 MG/VIAL IM PRN (20:03)
[2020-11-22] MEDS ORDERED: CEFTRIAXONE 1 GM/NS 50 ML 1 GM/50 ML BAG IV SCH (20:03)
[2020-11-22] MEDS ORDERED: RISPERIDONE 1 MG TABLET PO PRN (20:03)
[2020-11-22] MEDS: METHYLPREDNISOLONE 40 MG INJ IV SCH (20:38)
[2020-11-22] MEDS: CEFTRIAXONE/SWI 1gm 1 GM/10 ML SYR IV SCH (20:38)
[2020-11-22] MEDS: INSULIN GLARGINE 100 UNITS/ML SQ SCH (20:38)
[2020-11-22] MEDS: INSULIN -REGULAR HUMAN 50 UNIT/0.5 ML ML SQ SCH (20:39)
[2020-11-22] MEDS ORDERED: METHYLPREDNISOLONE 40 MG INJ ONE (20:48)
[2020-11-22] MEDS ORDERED: NA CHLORIDE 0.9% 1,000 ML ONE (20:48)
[2020-11-22] MEDS ORDERED: INSULIN GLARGINE 100 UNITS/ML SQ ONE (20:50)
[2020-11-22] MEDS ORDERED: INSULIN -REGULAR HUMAN 50 UNIT/0.5 ML ML ONE (20:50)
[2020-11-22] MEDS: ASCORBIC ACID 500 MG TABLET PO SCH (20:59)
[2020-11-22] MEDS ORDERED: ASCORBIC ACID 500 MG TABLET ONE (21:07)
[2020-11-23] MEDS: METHYLPREDNISOLONE 40 MG INJ IV SCH ×3 (01:12→16:03)
[2020-11-23 03:58] LABS: Absolute Lymphocytes (CBC) 0.7 K/uL (0.7-4.9); Basophils % 0.3 % (0-1.3); Hematocrit 35.9 % (36.0-45.0); Lymphocytes % 8.5 % (15.3-44.8)
[2020-11-23 04:00] LABS: Magnesium 2.4 mg/dL (1.8-2.4)
[2020-11-23 04:44] LABS: Blood Morphology Comment NOT SEEN (NOT SEEN); Platelet Estimate ADEQ
[2020-11-23] MEDS: CLOPIDOGREL 75 MG TABLET PO SCH (09:33)
[2020-11-23] MEDS: ASCORBIC ACID 500 MG TABLET PO SCH ×3 (09:33→20:26)
[2020-11-23] MEDS: THIAMINE HCL 100 MG TABLET PO SCH (09:33)
[2020-11-23] MEDS: VITAMIN D 1000 UNIT TAB PO SCH (09:33)
[2020-11-23] MEDS: ENOXAPARIN 30 MG/0.3 ML SQ SCH (09:34)
[2020-11-23] MEDS: INSULIN -REGULAR HUMAN 50 UNIT/0.5 ML ML SQ SCH ×5 (09:34→20:27)
[2020-11-23] MEDS ORDERED: DOCUSATE NA 100 MG CAP PO PRN (09:46)
--- NOTE | 2020-11-23 09:55 | P.PN ---
Subjective Date of Service: 11/23/20 Primary Care Provider: Dr. Anderson Chief Complaint: Fever, cough Subjective: Improving (Appears better. Reports some improvement) Physical Examination - Vital Signs Temperature: 97.6 F Blood Pressure: 180/76 Pulse: 78 Respirations: 19 Pulse Ox (%): 99 - Physical Exam General: Alert, Cooperative, Demented (mild) HEENT: Atraumatic Neck: Supple Respiratory: Other (on 3 liters per nc) Cardiovascular: Irregular heart rate/rhythm (a fib rate controlled) Gastrointestinal: Normal bowel sounds Neurological: Normal speech, Normal strength at 5/5 x4 extr, Normal tone, Normal affect, Dementia (mild) - Studies Laboratory Data (last 24 hrs) 11/22/20 13:42: PT 12.0, INR 1.02, APTT 30.2 11/22/20 13:42: WBC 7.7, Hgb 10.5 L, Hct 31.2 L, Plt Count 185 11/22/20 13:42: Sodium 137, Potassium 3.7, BUN 48 H, Creatinine 1.72 H, Glucose 180 H, Total Bilirubin 0.4, AST 98 H, ALT 102 H, Alkaline Phosphatase 124 H, Lipase 109 Microbiology Data (last 24 hrs): 11/22/20 14:15 Throat Group A Streptococcus Rapid Screen - Final Medications List Reviewed: Yes Assessment & Plan Discharge Plan: Home Plan to discharge in: Greater than 2 days Physician Review Additional Text: Impression: Cough, fever secondary to recurrent UTI complicated with left lower lobe streptococcal pneumonia and COVID 19 Acute and 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 Monitor inflammatory factors. Wean off oxygen. Appears improved. Await Blood cultures. Will check CXR tomorrow. Continue home meds. Hydrate with IV fluids up to one liter then hold. Hold Lasix for now. Will discuss with Pulmonary. Will monitor closely. Acute and chronic renal disease stage 4: Hold Lasix. Continue with IV fluid up to one liter. Diabetes mellitus type 2 insulin dependent: Restart Lantus. Continue sliding scale and monitor accuchecks. Hypertension: Restart home meds. History of intracranial bleed-CVA: Restart Plavix. Pacemaker with history of atrial fibrillation: Restart Amiodarone. Continue with home meds. Hyperlipidemia: Restart home meds. Dementia: Overall stable. Will continue with home med. Time Spent Managing Pts Care (In Minutes): 55
[2020-11-23] MEDS ORDERED: LORAZEPAM 0.5 MG TABLET PO PRN (10:00)
[2020-11-23] MEDS: HYDRALAZINE HCL 20 MG/ML VIAL IV PRN (13:07)
[2020-11-23] MEDS ORDERED: D50W 25 GM/50 ML VIAL IV PRN (13:51)
[2020-11-23] MEDS: LOSARTAN POTASSIUM 50 MG TABLET PO SCH (16:00)
[2020-11-23] MEDS: NA CHLORIDE 0.9% 1,000 ML IV SCH (16:01)
[2020-11-23] MEDS: hydroCHLOROthiazide 12.5 MG CAP PO SCH (16:03)
[2020-11-23] MEDS: cloNIDine HCL 0.1 MG TAB PO SCH ×2 (16:03→20:25)
[2020-11-23] MEDS: AMIODARONE HCL 200 MG TAB PO SCH (20:26)
[2020-11-23] MEDS: CEFTRIAXONE/SWI 1gm 1 GM/10 ML SYR IV SCH (20:26)
[2020-11-23] MEDS: INSULIN GLARGINE 100 UNITS/ML SQ SCH (20:26)
[2020-11-23] MEDS: GABAPENTIN 100 MG CAP PO SCH (20:27)
[2020-11-24] MEDS: METHYLPREDNISOLONE 40 MG INJ IV SCH ×2 (01:08→10:17)
[2020-11-24 03:58] LABS: Absolute Lymphocytes (CBC) 0.4 K/uL (0.7-4.9); Basophils % 0.2 % (0-1.3); Hematocrit 31.8 % (36.0-45.0); MPV 8.9 fL (7.6-11.3); RBC Red Blood Cell Count 3.24 M/uL (3.86-4.86)
[2020-11-24 04:07] LABS: Magnesium 2.2 mg/dL (1.8-2.4); Potassium 3.6 mmol/L (3.5-5.1)
[2020-11-24] MEDS: ACETAMINOPHEN 500 MG TAB PO PRN (04:14)
[2020-11-24] MEDS ORDERED: POTASSIUM 25 MEQ EFFERV TAB PO ONE (05:59)
[2020-11-24] MEDS: THYROID 30 MG TAB PO SCH (06:00)
[2020-11-24] MEDS ORDERED: CLOPIDOGREL 75 MG TABLET PO SCH (09:00)
[2020-11-24] MEDS: THIAMINE HCL 100 MG TABLET PO SCH (09:00)
[2020-11-24] MEDS ORDERED: AMLODIPINE 5 MG TAB PO SCH (09:00)
[2020-11-24] MEDS: ENOXAPARIN 30 MG/0.3 ML SQ SCH (10:13)
[2020-11-24] MEDS: cloNIDine HCL 0.1 MG TAB PO SCH ×2 (10:14→21:59)
[2020-11-24] MEDS: VITAMIN D 1000 UNIT TAB PO SCH ×2 (10:14→10:16)
[2020-11-24] MEDS: LOSARTAN POTASSIUM 50 MG TABLET PO SCH (10:14)
[2020-11-24] MEDS: AMIODARONE HCL 200 MG TAB PO SCH ×2 (10:15→21:59)
[2020-11-24] MEDS: hydroCHLOROthiazide 12.5 MG CAP PO SCH (10:15)
[2020-11-24] MEDS: AMLODIPINE 10 MG TAB PO SCH (10:15)
[2020-11-24] MEDS: CLOPIDOGREL 75 MG TABLET PO SCH (10:16)
[2020-11-24] MEDS: ASCORBIC ACID 500 MG TABLET PO SCH ×3 (10:16→21:59)
[2020-11-24] MEDS: ATORVASTATIN 40 MG TAB PO SCH (10:17)
[2020-11-24] MEDS: RISPERIDONE 0.25 MG TABLET PO SCH (10:18)
[2020-11-24] MEDS: INSULIN -REGULAR HUMAN 50 UNIT/0.5 ML ML SQ SCH ×4 (10:20→21:00)
[2020-11-24] MEDS ORDERED: GLUCERNA SHAKE 237 ML CAN PO PRN (12:00)
[2020-11-24] MEDS: INSULIN GLARGINE 100 UNITS/ML SQ SCH ×2 (12:22→21:00)
--- NOTE | 2020-11-24 12:53 | P.PN ---
Subjective Date of Service: 11/24/20 Primary Care Provider: Dr. Anderson Chief Complaint: Fever, cough Subjective: Improving, Doing well Physical Examination - Vital Signs Temperature: 98.1 F Blood Pressure: 152/67 Pulse: 72 Respirations: 16 Pulse Ox (%): 97 - Physical Exam General: Alert, In no apparent distress, Oriented x3 HEENT: Atraumatic Neck: Supple Respiratory: Clear to auscultation bilaterally, Normal air movement Cardiovascular: Normal pulses, Regular rate/rhythm Gastrointestinal: Normal bowel sounds, No masses, No rebound, No guarding Neurological: Normal speech, Normal strength at 5/5 x4 extr, Normal tone, Normal affect - Studies Microbiology Data (last 24 hrs): 11/22/20 13:55 Clean Catch Urine [place] Count - Final >100,000 CFU/ML. 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 Will adjust meds. Monitor inflammatory factors. Wean off oxygen. Appears improved. Await Blood cultures. Wean off oxygen. Will ambulate. Will co nsult Nephrology. Home likely tomorrow with home oxygen and HH/PT. Acute and chronic renal disease stage 4: Continue with IV fluid up to one liter. Consult Nephrology. Diabetes mellitus type 2 insulin dependent:Increase Lantus. Continue sliding scale and monitor accuchecks. Hypertension: Continue to home meds History of intracranial bleed-CVA: Continue Plavix. Pacemaker with history of atrial fibrillation: Continue Amiodarone. Continue with home meds. Hyperlipidemia: Home meds. Dementia: Overall stable. Will continue with home med. Time Spent Managing Pts Care (In Minutes): 55
--- NOTE | 2020-11-24 19:47 | RAD REPORT ---
EXAM DESCRIPTION: US - Renal Ultrasound-Complete - 11/24/2020 7:39 pm CLINICAL HISTORY: chronic renal disease Flank pain COMPARISON: No comparisons FINDINGS: Both kidneys are normal in size, shape and echotexture. The right kidney measures 7.4 x 3.6 x 3.1 cm. No hydronephrosis, focal mass or perinephric fluid. The left kidney measures 7.9 x 5.0 x 3.7 cm. No hydronephrosis, focal mass or perinephric fluid. The urinary bladder is incompletely distended without gross abnormality seen. IMPRESSION: Unremarkable renal sonogram.
[2020-11-24] MEDS: CEFTRIAXONE/SWI 1gm 1 GM/10 ML SYR IV SCH (21:59)
[2020-11-24] MEDS: predniSONE 10 MG TAB PO SCH (21:59)
[2020-11-24] MEDS: GABAPENTIN 100 MG CAP PO SCH (21:59)
[2020-11-24] MEDS: NA CHLORIDE 0.9% 1,000 ML IV SCH (23:45)
[2020-11-25 03:51] VITALS: BMI 26.7
[2020-11-25 04:06] LABS: Absolute Lymphocytes (CBC) 0.6 K/uL (0.7-4.9); Basophils % 0.2 % (0-1.3); Hematocrit 28.2 % (36.0-45.0); Lymphocytes % 9.6 % (15.3-44.8); MPV 9.2 fL (7.6-11.3); RBC Red Blood Cell Count 2.83 M/uL (3.86-4.86)
[2020-11-25 04:37] LABS: Albumin 2.3 g/dL (3.4-5.0); Magnesium 2.5 mg/dL (1.8-2.4); Phosphorus 3.4 mg/dL (2.5-4.9); Potassium 3.7 mmol/L (3.5-5.1); Uric Acid 5.7 mg/dL (2.6-6.0)
[2020-11-25] MEDS: THYROID 30 MG TAB PO SCH (05:45)
[2020-11-25] MEDS: NA CHLORIDE 0.9% 1,000 ML IV SCH (06:46)
[2020-11-25] MEDS: INSULIN -REGULAR HUMAN 50 UNIT/0.5 ML ML SQ SCH ×3 (07:30→16:55)
[2020-11-25] MEDS ORDERED: POTASSIUM CL SA 10 MEQ TAB PO ONE (09:00)
[2020-11-25] MEDS ORDERED: INSULIN GLARGINE 100 UNITS/ML SQ SCH (09:00)
[2020-11-25] MEDS: ENOXAPARIN 30 MG/0.3 ML SQ SCH (09:53)
[2020-11-25] MEDS: ATORVASTATIN 40 MG TAB PO SCH (09:54)
[2020-11-25] MEDS: LOSARTAN POTASSIUM 50 MG TABLET PO SCH (09:54)
[2020-11-25] MEDS: ASCORBIC ACID 500 MG TABLET PO SCH ×2 (09:55→14:14)
[2020-11-25] MEDS: CLOPIDOGREL 75 MG TABLET PO SCH (09:55)
[2020-11-25] MEDS: predniSONE 10 MG TAB PO SCH (09:55)
[2020-11-25] MEDS: THIAMINE HCL 100 MG TABLET PO SCH (09:55)
[2020-11-25] MEDS: RISPERIDONE 0.25 MG TABLET PO SCH (09:55)
[2020-11-25] MEDS: cloNIDine HCL 0.1 MG TAB PO SCH (09:55)
[2020-11-25] MEDS: AMLODIPINE 10 MG TAB PO SCH (09:55)
[2020-11-25] MEDS: AMIODARONE HCL 200 MG TAB PO SCH (09:55)
--- NOTE | 2020-11-25 11:10 | P.DS ---
Admission Date: 11/22/20 Discharge Date: 11/25/20 Primary Care Provider: Dr. Anderson Disposition: DC HOME/HOME HEALTH CARE Discharge Condition: GOOD Reason for Admission: Fever, cough Consultations: Pulmonary-Dr. Gonzales Procedures: COVID 19: Positive CT scan: FINDINGS: The evaluation of solid organs, vessels and bowel is limited secondary to the lack of contrast administration. The liver, spleen, pancreas, adrenals and kidneys appear grossly normal. Cholecystectomy. Marked dilatation of the common bile duct. Cardiomegaly Vascular calcifications No evidence of diverticulitis. Marked amount stool within the transverse and right colon IMPRESSION: Marked amount stool within the transverse and right colon Marked dilatation of the common bile duct. This can be a normal finding in this elderly patient status post cholecystectomy. Pathology such as stricture can also result in this appearance. This should be correlated clinically and with appropriate lab values Renal US: COMPARISON: No comparisons FINDINGS: Both kidneys are normal in size, shape and echotexture. The right kidney measures 7.4 x 3.6 x 3.1 cm. No hydronephrosis, focal mass or perinephric fluid. The left kidney measures 7.9 x 5.0 x 3.7 cm. No hydronephrosis, focal mass or perinephric fluid. The urinary bladder is incompletely distended without gross abnormality seen. IMPRESSION: Unremarkable renal sonogram. CXR: COMPARISON: September 20 1030 FINDINGS: Left upper lobe consolidation Heart is moderately enlarged. Postsurgical changes involve the chest. Pacemaker lead in place IMPRESSION: Left upper lobe consolidation probably pneumonia. Follow up CXR: Improvement noted Impression: Cough, fever secondary to recurrent UTI-Urine culture positive for Proteus complicated with left lower lobe streptococcal pneumonia and COVID 19 Acute and chronic renal disease stage 4 Diabetes mellitus type 2 insulin dependent Hypertension History of intracranial bleed-CVA Pacemaker with history of atrial fibrillation Hyperlipidemia Dementia Brief History of Present Illness: 85-year-old female with history of hypertension, diabetes, CAD with prior pacemaker, history of CVA, chronic renal disease stage III and hyperlipidemia. Patient presented with fever, cough and urinary pain. Patient was given Macrobid recently for UTI. Patient with history of recurrent UTI. Patient also reported cough. She was recently tested negative for COVID. Increased fatigue noted. Poor oral intake. Patient came to the ER for further evaluation. In the ER patient evaluated. Vital signs stable but room air saturations around 80%. White count 7.7, hemoglobin 10.5. Platelet count 155. BUN 40, creatinine 1.5 with a GFR 28. Glucose 180. Pro calcitonin 0.08. Lactic acid normal. Patient was positive for streptococcus. Patient also positive for UTI and COVID. Chest x-ray shows left lower lobe pneumonia. CRP 67. Ferritin 264. Patient admitted for further evaluation and treatment. Patient was given IV Rocephin and oxygen in the emergency room. Cultures obtained. Hospital Course: Patient presented with cough, fever secondary to left lobe streptococcal pneumonia and COVID 19 pneumonia with hypoxia. This is further complicated with recurrent UTI. Patient was admitted for treatment. Patient required IV steroids and antibiotic therapy. Patient also required oxygen. Patient has significantly improved. Urine culture positive for E coli. At discharge patient will continue with home oxygen at 2 liter/minute. This can be weaned off. Patient will continue with COVID 19 isolation and guidelines. Patient will continue with home health at discharge. At discharge she will continue with Augmentin 250 mg twice daily for 7 days to cover the UTI and pneumonia. Patient will also continue with Prednisone 10 mg one pill twice daily for 7 days then one pill daily for 7 days. Recommend to recheck chest x-ray in 2-4 weeks to monitor resolution. UTI prevention will also be provided. Patient will continue with incentive spirometer at home. Recommend follow up with pulmonology within 1 week to follow up her care. Recommend follow up with her PCP also in 1 week to further address and monitor her care. Spoke with daughter about expectation of the patient as she is still weak but she does not want her to go to a SNF facility. She will continue with HH/PT at discharge. Patient with acute on chronic renal disease. Patient was given IV fluids. Nephrology was consulted. Patient has improved. Medications have been adjusted. Lasix discontinued. Norvasc increased. Patient with HTN, DM, A fib, Hyperlipidemia, Dementia. She will continue with her medications. Please note that Norvasc was increased to 10 mg daily. Lasix was discontinued due to dehydration. Her weight will need to be monitored. If with increased weight, SOB, and edema, then Lasix can be restarted. Continue with other medication including Insulin, Amiodarone, Losartan/HCZ, Plavix, Thyroid medication, Gabapentin, Risperdal. Vital Signs/Physical Exam: Temp Pulse Resp BP Pulse Ox 99.5 F 81 18 189/74 H 93 11/25/20 08:00 11/25/20 09:55 11/25/20 08:00 11/25/20 09:55 11/25/20 08:00 General: Alert, In no apparent distress, Cooperative HEENT: Atraumatic Neck: Supple Respiratory: Other (No respiratory distress. Patient on 1 L per nasal cannula) Cardiovascular: Normal pulses, Regular rate/rhythm Gastrointestinal: Normal bowel sounds Neurological: Normal speech, Normal strength at 5/5 x4 extr, Normal tone, Normal affect Laboratory Data at Discharge: WBC 6.7 K/uL (4.3-10.9) D 11/25/20 03:08 Hgb 9.2 g/dL (12.0-15.0) L 11/25/20 03:08 Hct 28.2 % (36.0-45.0) L 11/25/20 03:08 Plt Count 168 K/uL (152-406) 11/25/20 03:08 PT 12.0 SECONDS (9.5-12.5) 11/22/20 13:42 INR 1.02 11/22/20 13:42 APTT 30.2 SECONDS (24.3-36.9) 11/22/20 13:42 Sodium 142 mmol/L (136-145) 11/25/20 03:08 Potassium 3.7 mmol/L (3.5-5.1) 11/25/20 03:08 BUN 72 mg/dL (7-18) H D 11/25/20 03:08 Creatinine 1.85 mg/dL (0.55-1.3) H 11/25/20 03:08 Glucose 255 mg/dL (74-106) H 11/25/20 03:08 Uric Acid 5.7 mg/dL (2.6-6.0) 11/25/20 03:08 Phosphorus 3.4 mg/dL (2.5-4.9) 11/25/20 03:08 Magnesium 2.5 mg/dL (1.8-2.4) H 11/25/20 03:08 Total Bilirubin 0.4 mg/dL (0.2-1.0) 11/22/20 13:42 AST 98 U/L (15-37) H 11/22/20 13:42 ALT 102 U/L (12-78) H 11/22/20 13:42 Alkaline Phosphatase 124 U/L (45-117) H 11/22/20 13:42 Lipase 109 U/L (73-393) 11/22/20 13:42 Home Medications: Amiodarone HCl [Cordarone*] 1 tab PO BID 10/09/20 Amlodipine [Norvasc*] 1 tab PO DAILY 10/09/20 Atorvastatin Calcium [Lipitor] 1 tab PO DAILY 10/09/20 Clopidogrel Bisulfate [Plavix*] 1 tab PO DAILY 10/09/20 Docusate Sodium 1 tab PO BIDP PRN 10/09/20 Losartan/Hydrochlorothiazide [Losartan-Hctz 100-12.5 mg Tab] 1 tab PO DAILY 10/09/20 Potassium Oral Tab [Klor-Con 10 mEq Tab*] 1 tab PO DAILY 10/09/20 Risperidone [Risperdal] 1 tab PO DAILY 10/09/20 cloNIDine HCL [Clonidine HCl] 1 tab PO BID 10/09/20 Gabapentin 1 cap PO BEDTIME 11/22/20 Insulin Glargine,Hum.rec.anlog [Lantus Solostar] 35 units SQ SEECOM 11/22/20 LORazepam [Lorazepam] 1 tab PO SEECOM 11/22/20 Thyroid,Pork [May Thyroid] 1 tab PO DAILY 11/22/20 Amlodipine [Norvasc*] 10 mg PO DAILY #30 tab 11/25/20 Amoxicillin/Potassium Clav [Augmentin 250-62.5 mg/5 ml] 5 ml PO BID #14 ml 11/25/20 Ascorbic Acid [Vitamin C*] 500 mg PO DAILY #30 tablet 11/25/20 Cholecalciferol (Vitamin D3) [Vitamin D 1000 Iu Tab*] 1,000 unit PO DAILY #30 tab 11/25/20 Thiamine HCl [Vitamin B-1*] 100 mg PO DAILY #30 tablet 11/25/20 predniSONE [Deltasone*] 10 mg PO SEECOM #21 tab 11/25/20 New Medications: Amoxicillin/Potassium Clav [Augmentin 250-62.5 mg/5 ml] 5 ml PO BID #14 ml predniSONE [Deltasone*] 10 mg PO SEECOM #21 tab Amlodipine [Norvasc*] 10 mg PO DAILY #30 tab Thiamine HCl [Vitamin B-1*] 100 mg PO DAILY #30 tablet Ascorbic Acid [Vitamin C*] 500 mg PO DAILY #30 tablet Cholecalciferol (Vitamin D3) [Vitamin D 1000 Iu Tab*] 1,000 unit PO DAILY #30 tab Patient Discharge Instructions: Patient presented with cough, fever secondary to left lobe streptococcal pneumonia and COVID 19 pneumonia with hypoxia. This is further complicated with recurrent UTI. Patient was admitted for treatment. Patient required IV steroids and antibiotic therapy. Patient also required oxygen. Patient has significantly improved. Urine culture positive for E coli. At discharge patient will continue with home oxygen at 2 liter/minute. This can be weaned off. Patient will continue with COVID 19 isolation and guidelines. Patient will continue with home health at discharge. At discharge she will continue with Augmentin 250 mg twice daily for 7 days to cover the UTI and pneumonia. Patient will also continue with Prednisone 10 mg one pill twice daily for 7 days then one pill daily for 7 days. Recommend to recheck chest x- ray in 2-4 weeks to monitor resolution. UTI prevention will also be provided. Patient will continue with incentive spirometer at home. Recommend follow up with pulmonology within 1 week to follow up her care. Recommend follow up with her PCP also in 1 week to further address and monitor her care. Spoke with daughter about expectation of the patient as she is still weak but she does not want her to go to a SNF facility. She will continue with HH/PT at discharge. Patient with acute on chronic renal disease. Patient was given IV fluids. Nephrology was consulted. Patient has improved. Medications have been adjusted. Lasix discontinued. Norvasc increased. Patient with HTN, DM, A fib, Hyperlipidemia, Dementia. She will continue with her medications. Please note that Norvasc was increased to 10 mg daily. Lasix was discontinued due to dehydration. Her weight will need to be monitored. If with increased weight, SOB, and edema, then Lasix can be restarted. Continue with other medication including Insulin, Amiodarone, Losartan/HCZ, Plavix, Thyroid medication, Gabapentin, Risperdal. Diet: ADA Activity: Fall precautions Followup: Unknown,U [Primary Care Provider] - Time spent managing pt's care (in minutes): 55
[2020-11-25 11:55] LABS: C-Reactive Protein 89.4 mg/L (<3.00); Ferritin 841.6 ng/mL (8-388)
[2020-11-25] MEDS: HYDRALAZINE HCL 20 MG/ML VIAL IV PRN (12:33)
--- NOTE | 2020-11-25 14:12 | CON ---
Date of Consultation: 11/25/2020 Reason For Consultation: Elevated BUN and creatinine. History Of Present Illness: This is a pleasant 85-year-old female well known to me from the office with significant past medical history of hypertension, hyperlipidemia, coronary artery disease, AFib, CVA, advanced dementia, diabetes complicated with neuropathy and nephropathy, chronic kidney disease stage 3 secondary to diabetic nephropathy. Baseline creatinine 1.5, GFR of 31 as of October 2020. The patient came to the hospital complaining of shortness of breath. Found to have UTI, COVID, and elevation in BUN and creatinine. For that reason, we have been consulted. The patient denied taking any nonsteroidal. No IV contrast. The patient apparently at home, being on losartan, hydrochlorothiazide, and Lasix. Over the night, we discontinued hydrochlorothiazide and losartan and started the patient on gentle hydration. Kidney function has been stabilized. Past Medical History: Includes: 1. Coronary artery disease complicated with congestive heart failure and AFib. 2. Hypertension. 3. Hyperlipidemia. 4. Chronic kidney disease; baseline creatinine 1.5, GFR of 31 as of October 2020. 5. Hyperlipidemia. 6. Diabetes complicated with neuropathy and nephropathy. Past Surgical History: Includes: 1. CABG. 2. Intracranial bleeding evacuation. Family History: Positive for diabetes and hypertension. Social History: Denies smoking. Denies drinking. Denies drug abuse. Review of Systems: Head and Neck: No red eye. No ear pain. GI: No nausea. No vomiting. : No polyuria. No dysuria. No hematuria. Neuro: Mild neuropathy. Musculoskeletal: Low back pain. Respiratory: Has shortness of breath. Cardiovascular: No chest pain. Endocrine: No polydipsia. Skin: No rash. Physical Examination: Vital Signs: When I saw the patient, blood pressure 181/77, pulse of 85, afebrile. Chest: Faint rales on the left base. Heart: S1, S2. Systolic murmur. Regular. Abdomen: Soft, nontender. Extremities: No edema. Neuro: Alert, oriented x3. Nonfocal. Laboratory Data: Sodium 142, potassium 3.7, bicarb 26, BUN 72, creatinine 1.8, GFR 26. Uric acid 5.7, calcium 8.2, phosphorus 3.4, magnesium 2.5. PTH 196. Renal ultrasound 7.4/7.9. Current Medications: The patient on include ceftriaxone, Lovenox, Plavix, amiodarone, amlodipine, clonidine, hydralazine, losartan, risperidone, gabapentin. Assessment And Plan: 1. Acute kidney injury secondary to over diuresis, recovered back to baseline. I am going to go ahead and discontinue IV fluid. Keep holding hydrochlorothiazide. Okay to resume losartan. 2. Hypertension, not controlled. Resume losartan. Keep holding hydrochlorothiazide. 3. Coronary artery disease, stable. 4. Urinary tract infection, not complicated. Continue current antibiotic. The patient cleared from the renal standpoint for discharge planning. Time spent discussing with the patient, [id number], using the translation, discussing with the staff and placing an order, discussing with over subspecialty and hospitalist 75 minutes. SYD Voice ID: [id number] Report ID: [id number] SRAVANTHI
[2020-11-25] MEDS: ACETAMINOPHEN 500 MG TAB PO PRN (15:15)
--- NOTE | 2020-11-25 15:28 | RAD REPORT ---
EXAM DESCRIPTION: Mag Single View11/25/2020 3:10 pm CLINICAL HISTORY: Chest pain COMPARISON: November 22, 2020 FINDINGS: Mild improvement in the left lung consolidation Right lung appears clear Heart remains enlarged. Postsurgical changes involve the chest. Pacemaker leads in place IMPRESSION: Mild improvement in the left lung consolidation presumably pneumonia
[2020-11-25 16:24] VITALS: O2SAT 90
[2020-11-25 20:11] VITALS: BP 136/65; TEMP 98.8
== END 2020-11-25 19:45 | disposition home health service (06) | DRG 177 ==
LOC: ER 12:18 → ERHOLD 17:17 → 4TH 22:02
PROVIDERS: ADMIT Family Medicine; ATTEND Family Medicine
DX: U07.1 COVID-19 (principal); J12.82 Pneumonia due to coronavirus disease 2019; N39.0 Urinary tract infection, site not specified; N18.4 Chronic kidney disease, stage 4 (severe); N17.9 Acute kidney failure, unspecified; E78.5 Hyperlipidemia, unspecified; I25.10 Atherosclerotic heart disease of native coronary artery without angina pectoris; I12.9 Hypertensive chronic kidney disease with stage 1 through stage 4 chronic kidney disease, or unspecified chronic kidney disease; E11.22 Type 2 diabetes mellitus with diabetic chronic kidney disease; E11.40 Type 2 diabetes mellitus with diabetic neuropathy, unspecified; N28.9 Disorder of kidney and ureter, unspecified; I48.91 Unspecified atrial fibrillation; E86.0 Dehydration; F03.90 Unspecified dementia, unspecified severity, without behavioral disturbance, psychotic disturbance, mood disturbance, and anxiety; B96.4 Proteus (mirabilis) (morganii) as the cause of diseases classified elsewhere; B96.20 Unspecified Escherichia coli [E. coli] as the cause of diseases classified elsewhere; B95.0 Streptococcus, group A, as the cause of diseases classified elsewhere; Z79.52 Long term (current) use of systemic steroids; Z66 Do not resuscitate; Z88.8 Allergy status to other drugs, medicaments and biological substances; Z86.73 Personal history of transient ischemic attack (TIA), and cerebral infarction without residual deficits; Z79.4 Long term (current) use of insulin; Z95.0 Presence of cardiac pacemaker; Z79.02 Long term (current) use of antithrombotics/antiplatelets; Z95.1 Presence of aortocoronary bypass graft; Z79.899 Other long term (current) drug therapy; Z88.5 Allergy status to narcotic agent
CPT/HCPCS: 0240U; 36415; 51702; 71045; 74176; 76770; 80048; 80069; 80076; 81003; 81015; 82565; 82728; 82947; 83605; 83690; 83735; 84145; 84484; 84550; 85025; 85610; 85730; 86140; 87040; 87077; 87081; 87086; 87088; 87186; 96361; 96374; 99251; 99285; J0360; J0696; J1650; J1815; J2920; J7030; J7040; J7512

== ENCOUNTER 2021-03-03 13:30 | Emergency (ER) | payer MEDICARE ==
[2021-03-03] MEDS ORDERED: ONDANSETRON 4 MG/2 ML VIAL ONE ×3 (14:56→21:17)
[2021-03-03] MEDS ORDERED: MEPERIDINE HCL 25 MG/ML SYR ONE ×4 (14:57→21:34)
--- NOTE | 2021-03-03 16:33 | RAD REPORT ---
EXAM DESCRIPTION: RAD - Pelvis - 03/03/2021 4:19 pm CLINICAL HISTORY: Pelvic pain FINDINGS: Old fracture greater trochanter left femur. No acute fracture or dislocation. Moderate joint space narrowing involves left hip The bones are osteoporotic.
--- NOTE | 2021-03-03 16:34 | RAD REPORT ---
EXAM DESCRIPTION: RAD - Hip Left 2 View - 03/03/2021 4:19 pm CLINICAL HISTORY: Left hip pain FINDINGS: Old fracture greater trochanter left femur. No acute fracture or dislocation. Moderate joint space narrowing involves left hip The bones are osteoporotic.
[2021-03-03] MEDS ORDERED: FENTANYL CITR 100 MCG/2 ML ONE (17:50)
--- NOTE | 2021-03-03 18:29 | RAD REPORT ---
EXAM DESCRIPTION: CTPelvis Angio03/03/2021 6:04 pm CLINICAL HISTORY: Pelvic pain COMPARISON: None TECHNIQUE: 100 cc Isovue-300 was administered intravenously. 3D mip reconstruction performed All CT scans are performed using dose optimization technique as appropriate and may include automated exposure control or mA/KV adjustment according to patient size. FINDINGS: The lower abdominal aorta, right and left common iliac, right internal and external iliac arteries are patent. The proximal and mid left external iliac artery is patent. The distal left external iliac artery is o ccluded. The left common femoral and proximal left superficial femoral arteries are occluded. Dense calcification within the left internal iliac artery results in high-grade stenosis. Calcificati on left deep femoral artery results in a high-grade stenosis. 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
--- NOTE | 2021-03-03 18:45 | EDPHYS ---
Physician Documentation [facility] Name: Elizabeth Tabor Age: 85 yrs Sex: Female : 1935 Arrival Date: 03/03/2021 Time: 13:57 Bed 2 Private MD: ED Physician Salty Colón HPI: 03/03 17:57 This 85 yrs old Female presents to ER via EMS with complaints of Hip Pain. kdr 17:57 The patient or guardian reports decreased range of motion, pain. that occurred at home, kdr sustained from unknown reason, The patient was ambulating with daughter when she suddenly had pain in her left posterior hip/buttock The complaints affect the left gluteus chiquis and left gluteal fold. Onset: The symptoms/episode began/occurred suddenly, just prior to arrival. Modifying factors: The symptoms are alleviated by nothing, the symptoms are aggravated by any movement, extension, external rotation. Associated signs and symptoms: Pertinent positives: None. Pertinent negatives: None. Severity of symptoms: At their worst the symptoms were moderate, severe, incapacitating, just prior to arrival, in the emergency department the symptoms are unchanged. The patient has not experienced similar symptoms in the past. The patient has not recently seen a physician. The patient was ambulating with her daughters help when she had sudden onset of pain to the left hip/gluteal area. Historical: - Allergies: 14:04 Morphine; ld1 14:04 Xanax; ld1 - Home Meds: 14:04 amiodarone 200 mg Oral tab 1 tab 2 times per day [Active]; amlodipine 5 mg tab 1 tab ld1 once daily [Active]; atorvastatin 40 mg Oral tab 1 tab once daily [Active]; clonidine HCl 0.1 mg Oral tab 1 tab 2 times per day [Active]; clopidogrel 75 mg Oral tab 1 tab once daily [Active]; docusate sodium 100 mg Oral cap 1 cap 2 times per day [Active]; furosemide 20 mg Oral tab 1 tab once daily [Active]; Humalog Pen Sub-Q [Active]; Klor-Con 10 10 mEq Oral TbER 1 tab once daily [Active]; Lantus 100 unit/mL Sub-Q soln [Active]; losartan-hydrochlorothiazide 100-12.5 mg Oral tab 1 tab once daily [Active]; RN LONG TERM CARE Thyroid 90 mg Oral tab [Active]; risperidone 0.5 mg Oral tab 1 tabs once daily [Active]; - Immunization history:: Adult Immunizations up to date. - Social history:: Smoking status: Patient denies any tobacco usage or history of. ROS: 18:02 Constitutional: Negative for fever, chills, and weight loss, Eyes: Negative for injury, kdr pain, redness, and discharge, ENT: Negative for injury, pain, and discharge, Neck: Negative for injury, pain, and swelling, Cardiovascular: Negative for chest pain, palpitations, and edema, Respiratory: Negative for shortness of breath, cough, wheezing, and pleuritic chest pain, Abdomen/GI: Negative for abdominal pain, nausea, vomiting, diarrhea, and constipation, Back: Negative for injury and pain, : Negative for injury, bleeding, discharge, and swelling, Skin: Negative for injury, rash, and discoloration, Neuro: Negative for headache, weakness, numbness, tingling, and seizure activity. Psych: Negative for depression, anxiety, suicide ideation, homicidal ideation, and hallucinations, Allergy/Immunology: Negative for hives, rash, and allergies, Endocrine: Negative for neck swelling, polydipsia, polyuria, polyphagia, and marked weight changes, Hematologic/Lymphatic: Negative for swollen nodes, abnormal bleeding, and unusual bruising. 18:02 MS/extremity: Positive for injury or acute deformity, decreased range of motion, pain, tenderness, of the left hip. Exam: 18:02 Constitutional: This is a well developed, well nourished patient who is awake, alert, kdr and in mild distress. Head/Face: Normocephalic, atraumatic. Eyes: Pupils equal round and reactive to light, extra-ocular motions intact. Lids and lashes normal. Conjunctiva and sclera are non-icteric and not injected. Cornea within normal limits. Periorbital areas with no swelling, redness, or edema. Neck: Trachea midline, no thyromegaly or masses palpated, and no cervical lymphadenopathy. Supple, full range of motion without nuchal rigidity, or vertebral point tenderness. No Meningismus. Chest/axilla: Normal chest wall appearance and motion. Nontender with no deformity. No lesions are appreciated. Cardiovascular: Regular rate and rhythm with a normal S1 and S2. No gallops, murmurs, or rubs. Normal PMI, no JVD. No pulse deficits. Respiratory: Lungs have equal breath sounds bilaterally, clear to auscultation and percussion. No rales, rhonchi or wheezes noted. No increased work of breathing, no retractions or nasal flaring. Abdomen/GI: Soft, non-tender, with normal bowel sounds. No distension or tympany. No guarding or rebound. No evidence of tenderness throughout. Back: No spinal tenderness. No costovertebral tenderness. Full range of motion. Skin: Warm, dry with normal turgor. Normal color with no rashes, no lesions, and no evidence of cellulitis. Neuro: Awake and alert, GCS 15, oriented to person, place, time, and situation. Cranial nerves II-XII grossly intact. Motor strength 5/5 in all extremities. Sensory grossly intact. Cerebellar exam normal. Normal gait. Psych: Awake, alert, with orientation to person, place and time. Behavior, mood, and affect are within normal limits. 18:02 Musculoskeletal/extremity: Extremities: grossly normal except: noted in the left gluteus chiquis, left gluteal fold and left hip: Vital Signs: 13:58 BP 145 / 50; Pulse 82; Resp 18; Temp 97.6(O); Pulse Ox 98% on R/A; Weight 58.97 kg; ld1 Height 5 ft. 2 in. (157.48 cm); Pain 8/10; 14:06 BP 145 / 50; Pulse 82; Resp 18; Pulse Ox 98% on R/A; Pain 8/10; ld1 16:30 BP 139 / 49; Pulse 72; Resp 15; Pulse Ox 98% ; hb 17:37 BP 144 / 48; Pulse 77; Resp 15; Pulse Ox 99% ; Pain 10/10; hb 18:18 BP 157 / 47; Pulse 71; Resp 17; Pulse Ox 96% ; Pain 9/10; hb 13:58 Body Mass Index 23.78 (58.97 kg, 157.48 cm) ld1 MDM: 18:02 Data reviewed: vital signs, nurses notes, lab test result(s), radiologic studies. kdr Counseling: I had a detailed discussion with the patient and/or guardian regarding: the historical points, exam findings, and any diagnostic results supporting the discharge/admit diagnosis, lab results, radiology results. 18:44 Patient medically screened. kdr 20:19 ED course: Consulted with Dr. Santos at [facility], is going to try and see if they rn can accommodate patient transfer and get back to us. So far we have been declined by [facility], [facility], [facility], [facility], [facility], and [facility]. . 03/03 18:41 Order name: Basic Metabolic Panel; Complete Time: 20:16 kdr 03/03 18:41 Order name: CBC with Diff kdr 03/03 18:41 Order name: LFT's; Complete Time: 20:16 kdr 03/03 18:41 Order name: Magnesium; Complete Time: 20:16 kdr 03/03 18:41 Order name: NT PRO-BNP; Complete Time: 20:16 kdr 03/03 18:41 Order name: PT-INR; Complete Time: 20:16 kdr 03/03 15:22 Order name: Pelvis XRAY; Complete Time: 17:37 kdr 03/03 15:22 Order name: Hip Left 2 View XRAY; Complete Time: 17:37 kdr 03/03 17:40 Order name: Pelvis Angio; Complete Time: 18:34 EDMS 03/03 18:41 Order name: Troponin (emerg Dept Use Only); Complete Time: 20:16 kdr 03/03 18:49 Order name: COVID-19 : Document "Date of Symptom Onset" if Symptomatic. kdr 03/03 20:34 Order name: SARS-COV-2 RT PCR; Complete Time: 20:42 EDMS 03/03 22:05 Order name: CBC Smear Scan EDMS 03/03 18:02 Order name: US Extremity Venous Unilateral Ltd; Complete Time: 20:16 kdr 03/03 18:02 Order name: US LE Artery Uni Ltd; Complete Time: 20:16 kdr 03/03 18:41 Order name: XRAY Chest (1 view) kdr 03/03 18:41 Order name: EKG; Complete Time: 18:42 kdr 03/03 18:41 Order name: Cardiac monitoring; Complete Time: 19:04 kdr 03/03 20:10 Order name: RAD; Complete Time: 20:16 EDMS 03/03 18:41 Order name: EKG - Nurse/Tech; Complete Time: 19:14 kdr 03/03 18:41 Order name: IV Saline Lock; Complete Time: 19:03 kdr 03/03 18:41 Order name: Labs collected and sent; Complete Time: 19:04 kdr 03/03 18:41 Order name: O2 Per Protocol; Complete Time: 19:04 kdr 03/03 18:41 Order name: O2 Sat Monitoring; Complete Time: 19:04 kdr Administered Medications: 14:49 Drug: Demerol (meperidine) 12.5 mg Route: IVP; Site: left antecubital; hb 15:20 Follow up: Response: No adverse reaction hb 14:49 Drug: Zofran (Ondansetron) 4 mg Route: IVP; Site: left antecubital; hb 15:20 Follow up: Response: No adverse reaction hb 15:39 Drug: Demerol (meperidine) 25 mg Route: IVP; Site: left antecubital; hb 16:15 Follow up: Response: No adverse reaction hb 17:39 Drug: fentaNYL (PF) 25 mcg Route: IVP; Site: left antecubital; hb 17:55 Follow up: Response: No adverse reaction hb 17:55 Drug: fentaNYL (PF) 25 mcg Route: IVP; Site: left antecubital; hb 18:17 Follow up: Response: No adverse reaction hb 18:17 Drug: fentaNYL (PF) 25 mcg Route: IVP; Site: left antecubital; hb 18:57 Drug: Heparin (DVT/PE- Bolus per protocol) - HEParin 80 units/kg {Co-Signature: sv hb (Laura Serna RN).} Route: IVP; Site: left antecubital; 18:58 Drug: Heparin (DVT/PE Drip) 18 units/kg/hr - (HEParin 42653 units, D5W 500 ml) hb {Co-Signature: sv (Laura Serna RN).} Route: IV; Rate: calculated rate; Site: left antecubital; 21:22 Drug: Zofran (Ondansetron) 4 mg Route: IVP; Site: left antecubital; mg2 21:22 Drug: Demerol (meperidine) 25 mg Route: IVP; Site: left hand; mg2 Disposition: 03/03/21 18:44 Transfer ordered to Other Acute Care Facility. 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 - Reason for transfer: Higher level of care. - Accepting physician is Dr. santos. - Condition is Serious. - Problem is new. - Symptoms are unchanged. Signatures: Dispatcher [employer] [facility] Alma Hoover, [employer]-C [employer]-Ckb Bogdan Ontiveros MD MD kdr Nieto, Roman, MD MD rn Brie Peacock, RN RN hb Adi Pro, RN RN mg2 Mague Larson, RN RN ld1 Laura Serna RN sv Corrections: (The following items were deleted from the chart) 20:40 18:49 CORONAVIRUS ordered. [facility] EDCO 21:14 18:44 03/03/2021 18:44 Transfer ordered to [facility]. Diagnosis is Left rn common illiac and femoral artery occlusion. Reason for transfer: Higher level of care. Accepting physician is . Condition is Serious. Problem is new. Symptoms are unchanged. kdr 22:32 21:14 03/03/2021 18:44 Transfer ordered to Other Acute Care Facility. Diagnosis is Left mg2 common illiac and femoral artery occlusion. Reason for transfer: Higher level of care. Accepting physician is Dr. santos. Condition is Serious. Problem is new. Symptoms are unchanged. rn
--- NOTE | 2021-03-03 18:45 | ER ---
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 Coronavirus screen: ld1 Client denies travel out of the [place] in the last 14 days. At this time, the client does not indicate any symptoms associated with coronavirus-19. Ebola Screen: No symptoms or risks identified at this time. Initial Sepsis Screen: Does the patient meet any 2 criteria? No. Patient's initial sepsis screen is negative. Does the patient have a suspected source of infection? No. Patient's initial sepsis screen is negative. Risk Assessment: Do you want to hurt yourself or someone else? Patient reports no desire to harm self or others. Onset of symptoms was March 03, 2021. 13:58 Method Of Arrival: EMS: [facility] ld1 13:58 Acuity: NICOLLE 3 ld1 Triage Assessment: 14:04 General: Appears in no apparent distress. uncomfortable, Behavior is calm, cooperative, ld1 appropriate for age. Pain: Complains of pain in left leg Pain currently is 8 out of 10 on a pain scale. Quality of pain is described as shooting, Pain began gradually. EENT: No deficits noted. Neuro: Level of Consciousness is awake, alert, obeys commands, Oriented to person, place, time, situation. Cardiovascular: Capillary refill < 3 seconds Patient's skin is warm and dry. Respiratory: Airway is patent Respiratory effort is even, unlabored, Respiratory pattern is regular, symmetrical. GI: No deficits noted. : No deficits noted. Derm: No deficits noted. Musculoskeletal: No deficits noted. Historical: - Allergies: 14:04 Morphine; ld1 14:04 Xanax; ld1 - Home Meds: 14:04 amiodarone 200 mg Oral tab 1 tab 2 times per day [Active]; amlodipine 5 mg tab 1 tab ld1 once daily [Active]; atorvastatin 40 mg Oral tab 1 tab once daily [Active]; clonidine HCl 0.1 mg Oral tab 1 tab 2 times per day [Active]; clopidogrel 75 mg Oral tab 1 tab once daily [Active]; docusate sodium 100 mg Oral cap 1 cap 2 times per day [Active]; furosemide 20 mg Oral tab 1 tab once daily [Active]; Humalog Pen Sub-Q [Active]; Klor-Con 10 10 mEq Oral TbER 1 tab once daily [Active]; Lantus 100 unit/mL Sub-Q soln [Active]; losartan-hydrochlorothiazide 100-12.5 mg Oral tab 1 tab once daily [Active]; 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 - Social history:: Smoking status: Patient denies any tobacco usage or history of. Screenin:06 Abuse screen: Denies threats or abuse. Denies injuries from another. Nutritional ld1 screening: No deficits noted. Tuberculosis screening: No symptoms or risk factors identified. Fall Risk None identified. Assessment: 14:06 Reassessment: See triage assessment. ld1 15:00 Reassessment: Patient appears in no apparent distress at this time. No changes from hb previously documented assessment. Patient and/or family updated on plan of care and expected duration. Pain level reassessed. 16:00 Reassessment: Patient appears in no apparent distress at this time. No changes from hb previously documented assessment. Patient and/or family updated on plan of care and expected duration. Pain level reassessed. 17:36 Reassessment: Pt c/o left hip pain that radiates to left leg 08/28. Dr. Ontiveros notified, medicated as ordered. Daughter remains at bedside. 17:55 Reassessment: Pt c/o left hip pain 07/29. Medicated as ordered, pt to CT. hb 18:15 Reassessment: Pt returned from CT. hb 18:16 Reassessment: US at bedside. hb 18:58 Reassessment: Dr. nOtiveros at bedside, family updated on POC. Heparin bolus and drip hb started. Daughter remains at bedside. VSS. Awaiting lab results and acceptance at higher level of care at this time. 22:54 Reassessment: report given to [facility] and Jesse TAYLOR of [facility]. patient mg2 on good condition. IV intact. daughter contacted-[phone] ( Rhonda Kurtz). Vital Signs: 13:58 BP 145 / 50; Pulse 82; Resp 18; Temp 97.6(O); Pulse Ox 98% on R/A; Weight 58.97 kg; ld1 Height 5 ft. 2 in. (157.48 cm); Pain 8/10; 14:06 BP 145 / 50; Pulse 82; Resp 18; Pulse Ox 98% on R/A; Pain 8/10; ld1 16:30 BP 139 / 49; Pulse 72; Resp 15; Pulse Ox 98% ; hb 17:37 BP 144 / 48; Pulse 77; Resp 15; Pulse Ox 99% ; Pain 10/10; hb 18:18 BP 157 / 47; Pulse 71; Resp 17; Pulse Ox 96% ; Pain 9/10; hb 13:58 Body Mass Index 23.78 (58.97 kg, 157.48 cm) ld1 ED Course: 13:57 Patient arrived in ED. em1 13:58 Bogdan Ontiveros MD is Attending Physician. kdr 13:58 Mague Larson, CLAUDIA is Primary Nurse. ld1 14:02 Triage completed. ld1 14:06 Patient has correct armband on for positive identification. Bed in low position. Call ld1 light in reach. Side rails up X2. 14:06 No provider procedures requiring assistance completed. ld1 14:40 Inserted saline lock: 20 gauge in left antecubital area, using aseptic technique. hb 16:19 Pelvis XRAY In Process Unspecified. EDMS 16:19 Hip Left 2 View XRAY In Process Unspecified. EDMS 18:04 Pelvis Angio In Process Unspecified. EDMS 18:50 US Extremity Venous Unilateral Ltd In Process Unspecified. EDMS 18:50 US LE Artery Uni Ltd In Process Unspecified. EDMS 18:56 Inserted saline lock: 22 gauge in left hand, using aseptic technique. hb 19:15 will continue to find placement for patient. 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 19:16 Attending Physician role handed off by Bogdan Ontiveros MD rn 19:16 Salty Colón MD is Attending Physician. rn 19:17 initiated a transfer with Abner from [facility] Transfer [facility]. He stated " [place] is mw2 going to have to decline due to saturation." Then stated " the patient is not declined just yet let me call you back in a couple minutes.". 19:23 role handed off by Brie Peacock, RN em1 19:23 Primary Nurse role handed off by Mague Larson, RN em1 19:34 Abner from [facility] Transfer Center called to inform us that all of their campuses were at mw2 capacity. 19:38 initiated a transfer with [facility] Transfer [facility]. They denied due to capacity. mw2 19:39 initiated a transfer with Adry from [facility]. mw2 19:48 [facility] denied due to capacity. mw2 19:53 initiated a transfer with Ty from [facility]. He stated "we 2 currently don't have beds but you can fax her clinicals and we can put her on our waitlist.". 20:15 [facility] from [facility] called to infrom us that they have their Vascular [facility] doctor Dr. Arenas to do a doc to doc right now. 20:34 initiated a transfer with Yamilet from [facility]. mw2 20:55 Ty the [facility] from [facility] called to inform us that he did not receive [facility] the patient's covid results. 20:57 faxed over patient's covid result. mw2 20:59 Adi Pro, RN is Primary Nurse. mg2 21:09 Ty the [facility] from [facility] called back to give us Dr. Roche the [facility] hospitalist from [facility] pager number. 21:[address] Roche the hospitalist from [facility]. mw2 21:13 Yamilet from [facility] called to inform us that they are going to have to decline. mw2 22:07 administrative approval given by Elmer Singh/ patient has been accepted to [address] bed 522/ Dr. Roche accepted the patient in transfer/ report to be called to [phone]. 22:[address] [facility] to transport patient. mw2 22:54 Arm band placed on. mg2 22:54 Patient transferred, IV remains in place. mg2 Administered Medications: 14:49 Drug: Demerol (meperidine) 12.5 mg Route: IVP; Site: left antecubital; hb 15:20 Follow up: Response: No adverse reaction hb 14:49 Drug: Zofran (Ondansetron) 4 mg Route: IVP; Site: left antecubital; hb 15:20 Follow up: Response: No adverse reaction hb 15:39 Drug: Demerol (meperidine) 25 mg Route: IVP; Site: left antecubital; hb 16:15 Follow up: Response: No adverse reaction hb 17:39 Drug: fentaNYL (PF) 25 mcg Route: IVP; Site: left antecubital; hb 17:55 Follow up: Response: No adverse reaction hb 17:55 Drug: fentaNYL (PF) 25 mcg Route: IVP; Site: left antecubital; hb 18:17 Follow up: Response: No adverse reaction hb 18:17 Drug: fentaNYL (PF) 25 mcg Route: IVP; Site: left antecubital; hb 18:57 Drug: Heparin (DVT/PE- Bolus per protocol) - HEParin 80 units/kg {Co-Signature: sv hb (Laura Serna RN).} Route: IVP; Site: left antecubital; 18:58 Drug: Heparin (DVT/PE Drip) 18 units/kg/hr - (HEParin 53925 units, D5W 500 ml) hb {Co-Signature: sv (Laura Serna RN).} Route: IV; Rate: calculated rate; Site: left antecubital; 21:22 Drug: Zofran (Ondansetron) 4 mg Route: IVP; Site: left antecubital; mg2 21:22 Drug: Demerol (meperidine) 25 mg Route: IVP; Site: left hand; mg2 Outcome: 18:44 ER care complete, transfer ordered by . kdr 22:32 Patient left the ED. mg2 22:53 Transferred by ground EMS to other acute care facility: [facility]. mg2 X-rays sent w/ patient. 22:53 Condition: stable 22:53 Instructed on the need for transfer, Demonstrated understanding of instructions. Signatures: Dispatcher [employer] EDMS Bogdan Ontiveros MD MD kdr Nieto, Roman, MD MD rn Martinez, Eric em1 Brie Peacock RN RN Giana Graff mw2 Adi Pro, RN RN mg2 Mague Larson RN RN ld1 Laura Serna RN sv Corrections: (The following items were deleted from the chart) 22:56 22:31 Reassessment: mg2 mg2
[2021-03-03] MEDS ORDERED: HEPARIN/D5W 25,000 UNIT/500 ML BAG IV ONE (19:01)
[2021-03-03] MEDS ORDERED: HEPARIN 5000 UNIT/ML 1 ML VIAL ONE (19:01)
[2021-03-03 19:03] LABS: Absolute Lymphocytes (CBC) 0.5 K/uL (0.7-4.9); Basophils % 0.2 % (0-1.3); Hematocrit 26.9 % (36.0-45.0); Lymphocytes % 4.6 % (15.3-44.8); MPV 8.6 fL (7.6-11.3); RBC Red Blood Cell Count 2.77 M/uL (3.86-4.86)
--- NOTE | 2021-03-03 19:05 | RAD REPORT ---
EXAM DESCRIPTION: US - Lower Extremity Artery Uni Ltd - 03/03/2021 6:50 pm CLINICAL HISTORY: Leg pain COMPARISON: None FINDINGS: The left common femoral artery and proximal/mid left superficial femoral artery are occluded. Collate rals reconstitute the left popliteal artery. Left dorsalis pedis and left posterior tibial arteries are occluded IMPRESSION: Occlusion of the left common femoral and portions of the left superficial femoral artery. Occlusion of the left dorsalis pedis and left posterior tibial arteries
[2021-03-03 19:10] LABS: Protime INR 1.01
--- NOTE | 2021-03-03 19:10 | RAD REPORT ---
EXAM DESCRIPTION: USExtremity Venous Uni Ltd03/03/2021 6:50 pm CLINICAL HISTORY: Left leg pain COMPARISON: None FINDINGS: The left common femoral, superficial femoral and left posterior tibial veins are compressi ble. Doppler demonstrates good flow. Flow within the left popliteal vein was not seen. The vein is partially compressible. Thrombus is jorje pected IMPRESSION: Thrombus within the left popliteal vein
[2021-03-03 19:20] LABS: Albumin 3.4 g/dL (3.4-5.0); Bilirubin Direct 0.2 mg/dL (0-0.2); Bilirubin Total 0.4 mg/dL (0.2-1.0); Magnesium 2.9 mg/dL (1.8-2.4); Potassium 4.2 mmol/L (3.5-5.1); Protein, Total 7.6 g/dL (6.4-8.2); Troponin (Emerg Dept Use Only) 0.04 ng/mL (0.0-0.045)
--- NOTE | 2021-03-03 20:10 | RAD REPORT ---
EXAM DESCRIPTION: Mag Single View03/03/2021 7:39 pm CLINICAL HISTORY: Chest pain COMPARISON: November 2020 FINDINGS: The lungs appear clear of acute infiltrate. The heart is mildly to moderately enlarged. P ostsurgical changes involve the chest. Pacemaker lead in place IMPRESSION: No acute abnormalities displayed
[2021-03-03] MEDS ORDERED: MORPHINE 2 MG/ML SYR ONE (21:17)
[2021-03-03 22:04] LABS: Blood Morphology Comment NOT SEEN (NOT SEEN); Platelet Estimate ADEQ; White Blood Cell Scan OK (OK)
[2021-03-03 22:50] VITALS: TEMP 97.6
[2021-03-03 22:55] VITALS: BP 157/47; O2SAT 96
== END 2021-03-03 22:32 ==
LOC: ER 13:30
DX: I74.3 Embolism and thrombosis of arteries of the lower extremities (principal); Z20.822 Contact with and (suspected) exposure to COVID-19; Z88.5 Allergy status to narcotic agent
CPT/HCPCS: 93005; 85025; 80048; 36415; 83735; 85610; 80076; 84484; 83880; 72191; 71045; 72170; 73502; 93926; 93971; 99285; U0003; Q9967; J1644 ×2; J3010; J2175 ×4; J2405 ×3; J2270